=== PATIENT | female | born 1980 ===

== ENCOUNTER 2016-12-26 00:22 | Inpatient (IN) | payer BC ==
[2016-12-26] VITALS (14 sets, daily range): BP systolic 105–137; BP diastolic 63–94
[~2016-12-26] VITALS: Ht 162.6 cm; Wt 122.0 kg
[2016-12-26 00:48] LABS: BASO # 0.1 x10^3/uL (0.0-0.2); BASO % 1 % (0-3); EOS % 0 % (0-3); HEMATOCRIT 34.6 % (36.0-47.0); LYMPH # 2.9 x10^3/uL (1.0-4.8); LYMPH % 20 % (24-48); MEAN CORPUSCULAR HEMOGLOBIN 25 pg (25-35); MEAN CORPUSCULAR HGB CONC 32 g/dL (31-37); MEAN CORPUSCULAR VOLUME 80 fL (79-100); MONO % 4 % (0-9); NEUT % 75 % (31-73); PLATELET COUNT 223 x10^3/uL (140-400); RED BLOOD COUNT 4.35 x10^6/uL (3.50-5.40); RED CELL DISTRIBUTION WIDTH 18.5 % (11.5-14.5); WHITE BLOOD COUNT 14.5 x10^3/uL (4.0-11.0)
[2016-12-26 01:18] LABS: CALCIUM 8.9 mg/dL (8.5-10.1); GFR 62.4; POTASSIUM 3.7 mmol/L (3.5-5.1)
[2016-12-26] MEDS ORDERED: CONTRAST GIVEN MC PRN ×2 (01:30→12:15)
[2016-12-26 01:32] LABS: DIRECT BILIRUBIN 0.1 mg/dL (0.0-0.2); TOTAL BILIRUBIN 0.3 mg/dL (0.2-1.0); TOTAL PROTEIN 7.4 g/dL (6.4-8.2)
--- NOTE | 2016-12-26 01:34 | PHYS DOC ---
Past Medical History Past Medical History: Asthma, Hypertension Past Surgical History: , Other Additional Past Surgical Histo: HERNIA REPAIR Alcohol Use: None Drug Use: None Adult General Chief Complaint Chief Complaint: CHEST PAIN HPI HPI 36-year-old female who states she's having significant chest pain that is substernal and has been present for the last week and has acutely worsened throughout the last day. Patient's been seen by her primary doctor and started on a course of prednisone and Z-Ramon without any relief. Patient does have history of asthma. She also states she had a complication with her recent and was diagnosed with preeclampsia and had her 3 weeks early in early November. She is currently on nifedipine for blood pressure control. Pt had no history of HTN she states prior to her last . Pt denies any significant smoking history and drug use. Review of Systems Review of Systems Constitutional: Denies fever or chills [] Eyes: Denies change in visual acuity, redness, or eye pain [] HENT: Denies nasal congestion or sore throat [] Respiratory: Has cough, has shortness of breath [] Cardiovascular: No additional information not addressed in HPI [] GI: Denies abdominal pain, nausea, vomiting, bloody stools or diarrhea [] : Denies dysuria or hematuria [] Musculoskeletal: Denies back pain or joint pain [] Integument: Denies rash or skin lesions [] Neurologic: Denies headache, focal weakness or sensory changes [] Endocrine: Denies polyuria or polydipsia [] Current Medications Current Medications Current Medications Medications (Trade) Dose Ordered Sig/Ed Start Time Stop Time Status Last Admin Dose Admin Albuterol/ Ipratropium (Duoneb) 3 ml 1X ONCE 12/26/16 02:00 12/26/16 02:01 DC 12/26/16 01:56 3 ML Fentanyl Citrate (Fentanyl 2ml Vial) 50 mcg 1X ONCE 12/26/16 02:00 12/26/16 02:01 DC 12/26/16 02:17 50 MCG Info (Do NOT chart on this entry -- for MONITORING) 1 each PRN DAILY PRN 12/26/16 01:30 12/28/16 01:29 Iohexol (Omnipaque 300 Mg/ml) 75 ml 1X ONCE 12/26/16 02:00 12/26/16 02:01 DC Allergies Allergies Allergies Coded Allergies Type Severity Reaction Last Updated Verified No Known Drug Allergies 09/21/16 No Physical Exam Physical Exam Constitutional: Well developed, well nourished, moderate distress [] HENT: Normocephalic, atraumatic, bilateral external ears normal, oropharynx moist, no oral exudates, nose normal. [] Eyes: PERRLA, EOMI, conjunctiva normal, no discharge. [] Neck: Normal range of motion, no tenderness, supple, no stridor. [] Cardiovascular:Heart rate tachycardic with regular rhythm, no murmur [] Lungs & Thorax: Diminished bilaterally, tachypneic, moderate respiratory distress. [] Abdomen: Bowel sounds normal, soft, no tenderness, no masses, no pulsatile masses. [] Skin: Warm, dry, no erythema, no rash. [] Back: No tenderness, no CVA tenderness. [] Extremities: No tenderness, no cyanosis, no clubbing, ROM intact, no edema. [] Neurologic: Alert and oriented X 3, normal motor function, normal sensory function, no focal deficits noted. [] Psychologic: Affect normal, judgement normal, mood normal. [] Current Patient Data Vital Signs Vital Signs Date Time Temp Pulse Resp B/P (MAP) Pulse Ox O2 Delivery O2 Flow Rate FiO2 12/26/16 01:58 93 Nasal Cannula 4.0 12/26/16 00:29 99.0 108 24 161/94 (116) 99.0 Lab Values Laboratory Tests Test 12/26/16 00:40 12/26/16 01:16 White Blood Count 14.5 x10^3/uL (4.0-11.0) H Red Blood Count 4.35 x10^6/uL (3.50-5.40) Hemoglobin 11.0 g/dL (12.0-15.5) L Hematocrit 34.6 % (36.0-47.0) L Mean Corpuscular Volume 80 fL (79-100) Mean Corpuscular Hemoglobin 25 pg (25-35) Mean Corpuscular Hemoglobin Concent 32 g/dL (31-37) Red Cell Distribution Width 18.5 % (11.5-14.5) H Platelet Count 223 x10^3/uL (140-400) Neutrophils (%) (Auto) 75 % (31-73) H Lymphocytes (%) (Auto) 20 % (24-48) L Monocytes (%) (Auto) 4 % (0-9) Eosinophils (%) (Auto) 0 % (0-3) Basophils (%) (Auto) 1 % (0-3) Neutrophils # (Auto) 10.9 x10^3uL (1.8-7.7) H Lymphocytes # (Auto) 2.9 x10^3/uL (1.0-4.8) Monocytes # (Auto) 0.6 x10^3/uL (0.0-1.1) Eosinophils # (Auto) 0.0 x10^3/uL (0.0-0.7) Basophils # (Auto) 0.1 x10^3/uL (0.0-0.2) Sodium Level 142 mmol/L (136-145) Potassium Level 3.7 mmol/L (3.5-5.1) Chloride Level 107 mmol/L (98-107) Carbon Dioxide Level 26 mmol/L (21-32) Anion Gap 9 (6-14) Blood Urea Nitrogen 14 mg/dL (7-20) Creatinine 1.0 mg/dL (0.6-1.0) Estimated GFR (Cockcroft-Gault) 62.4 Glucose Level 117 mg/dL (70-99) H Calcium Level 8.9 mg/dL (8.5-10.1) Total Bilirubin 0.3 mg/dL (0.2-1.0) Direct Bilirubin 0.1 mg/dL (0.0-0.2) Aspartate Amino Transferase (AST) 19 U/L (15-37) Alanine Aminotransferase (ALT) 29 U/L (14-59) Alkaline Phosphatase 78 U/L (46-116) Troponin I Quantitative < 0.017 ng/mL (0.000-0.055) VU-Bpu-M-Type Natriuretic Peptide 2542 pg/mL (0-124) H Total Protein 7.4 g/dL (6.4-8.2) Albumin 3.0 g/dL (3.4-5.0) L POC Urine HCG, Qualitative Hcg negative (Negative) Laboratory Tests 12/26/16 00:40 Laboratory Tests 12/26/16 00:40 EKG EKG EKG as interpreted by me reveals a sinus tachycardia with a rate of 108 bpm. There is a non-specific intraventricular block. There are some noted t-wave inversions to lead 2, lead 3, AVF, V5, V6. This EKG does not meet STEMI criteria. Radiology/Procedures Radiology/Procedures Portable one view of the chest as interpreted by me shows a cardiomegaly with no other acute abnormality seen. Course & Med Decision Making Course & Med Decision Making Pertinent Labs and Imaging studies reviewed. (See chart for details) This 36-year-old female is having similar chest pain or shortness of breath. She is mildly hypertensive upon arrival and in mild distress. Her chest film shows significant cardiomegaly. Her EKG shows a sinus tachycardia with some noted T-wave inversions throughout. Her recent puts her at moderate risk for pulmonary embolus and she'll receive a CT of her chest to rule this out. Her laboratory workup indicates a slightly elevated white count. Her troponin is negative. Her BNP is elevated at 2459. Patient was taken to get a CT of her chest but when attempting to lie flat she became acutely anxious and unable to undergo this study. She was returned to the room and will have a breathing treatment administered. A dose of Ativan will be given and another attempt to obtain a CT scan will be made. After several DuoNeb treatments and a dose of Ativan, the patient is still significantly tachycardic and orthopneic and unwilling to lie flat for CT. A prophylactic dose of Lovenox will be given. Lasix will be given as well. At this time, it appears that the patient is having an advanced cardiomyopathy. Patient will be placed on BiPAP and a blood gas will be obtained after 30 minutes of treatment. Patient will be admitted on BiPAP therapy in an attempt to obtain a CT of her chest will be made later today. I will communicate this with the hospitalist in the morning. Consults to cardiology and OB will be made. She was admitted to the [facility] without incident. Her blood gas upon admission showed a pH of 7.35 with a pCO2 of 38.5 and a p02 of 56.3 with a bicarb of 21. Dragon Disclaimer Dragon Disclaimer This electronic medical record was generated, in whole or in part, using a voice recognition dictation system. Departure Departure Impression: Primary Impression: cardiomyopathy Additional Impressions: CHF exacerbation Dyspnea Disposition: ADMITTED INPATIENT Admitting Physician: Green, Mary Condition: STABLE Referrals: UNKNOWN PCP NAME (PCP) Problem Qualifiers KASSIE SHIRLEY DO December 26, 2016 01:34
[2016-12-26] MEDS ORDERED: fentaNYL PF VIAL 100 MCG/2 ML VIAL IV ONE ×2 (02:00→12:00)
[2016-12-26] MEDS ORDERED: IPRATRPIUM/ALBUTEROL 0.5/2.5MG 3 ML NEBU. NEB ONE ×2 (02:00→03:00)
[2016-12-26] MEDS ORDERED: IOHEXOL 300 MG/ML 75 ML VIAL IV ONE (02:00)
[2016-12-26] MEDS ORDERED: fentaNYL PF VIAL 100 MCG/2 ML VIAL IV PRN (02:15)
[2016-12-26] MEDS ORDERED: ONDANSETRON PF 4 MG/2 ML VIAL. IV PRN (02:15)
[2016-12-26] MEDS ORDERED: ACETAMINOPHEN 325 MG TABLET. PO PRN (02:15)
--- NOTE | 2016-12-26 02:27 | ACF ---
Admission Forms Criteria OBSTETRIC AND GYNECOLOGIC DISEASE [facility] Clinical Indications for Admission to Inpatient Care (Place 'X' for any and all applicable criteria): Hospital admission is needed for appropriate care of the patient because of 1 or more of the following (1)(2)(3): [ ]I. Hemodynamic instability, as indicated by 1 or more of the following (1)( 2)(3)(4)(5): [ ]a) Vital signs or other findings not as expected for chronic patient condition or baseline [ ]b) Instability indicated by 1 or more of the following: [ ]i) Hypotension [ ]ii) Symptomatic tachycardia unresponsive to treatment (eg, analgesia, fluids, sedation as indicated) [ ]iii) Inadequate perfusion indicated by 1 or more of the following: [ ]A. Lactic acidosis (greater than 2 mmol/ L) [ ]B. New abnormal capillary refill ( greater than 3 seconds) [ ]C. Reduced urine output [ ]D. New altered mental status [ ]iv) Orthostatic vital sign changes unresponsive to treatment (eg, fluids) [ ]v) Multiple IV fluid boluses required to maintain adequate blood pressure or perfusion [ ]vi) IV inotropic or vasopressor medication required to maintain adequate blood pressure or perfusion [ ]II. Obstetric infection requiring hospitalization indicated by 1 or more of the following(13)(14): [ ]a) Chorioamnionitis [ ]b) Endometritis (except mild endometritis) [ ]c) Pelvic abscess [ ]d) Peritonitis [ ]e) Septic pelvic thrombophlebitis [ ]III. Amniotic fluid or pulmonary embolism(4)(5)(6) [ ]IV. Suspected peritonitis or ectopic requiring monitoring beyond scope of 24 hours or observation care(7)(8) [ ]V. compromise requiring hospitalization indicated by ALL of the following(9)(10): [ ]a) compromise indicated by 1 or more of the following(11): [ ]i) Abnormal heart rate monitoring [ ]ii) Abnormal contraction stress test [ ]iii) Abnormal biophysical profile [ ]iv) Abnormal Doppler flow in vessels (ie, Doppler velocimetry) (12) [ ]b) Persistence of compromise indicators during evaluation and observation monitoring [ ]. Ovarian hyperstimulation syndrome requiring hospitalization[A] indicated by ALL of the following(15): [ ]a) Recent ovarian stimulation with gonadotropins, or evidence on ultrasound of spontaneous emergence of large number of ovarian follicles [ ]b) Evidence of severe ovarian hyperstimulation syndrome indicated by 1 or more of the following: [ ]i) Abdominal pain unresponsive to oral therapy [ ]ii) Acute respiratory distress syndrome [ ]iii) Electrolyte imbalance ( eg, hyponatremia, hyperkalemia) [ ]iv) Elevated liver enzymes [ ]v) Evidence of thromboembolism [ ]vi) Hemoconcentration (hematocrit greater than 45 % (0.45)) [ ]vii) Inability to maintain oral intake adequate to prevent hemoconcentration [ ]viii) Marked hypotension from baseline (eg, SBP 20 mmHg below patients usual pressure) [ ]ix) Oliguria or anuria [ ]x) Ovarian torsion [ ]xi) Pleural or pericardial effusion on x-ray or echocardiogram [ ]xii) Rapid increase in serum creatinine to greater than 1.2 mg/dL (106 micromoles/L) or creatinine clearance less than 50 mL/min/1.73m2 (0.84 mL/ sec/1.73m2) [ ]xiii) Ruptured ovarian cyst with hemorrhage [ ]xiv) Severe abdominal pain or peritoneal signs [ ]xv) Tense ascites that cannot be managed with paracentesis in outpatient setting [ ]VII.Pelvic infection requiring hospitalization indicated by 1 or more of the following (16): [ ]a) Outpatient treatment has failed or is not appropriate (eg, inpatient monitoring required) [ ]b) Pelvic abscess [ ]c) Surgical emergency cannot be excluded (eg, rigid abdomen) [ ]d) Vomiting precluding outpatient and observation care management VIII. loss complications requiring inpatient medical treatment indicated by 1 or more of the following (4)(7)(9): [ ]a) Fever [ ]b) Peritonitis [ ]c) Sepsis [ ]d) Severe abdominal pain [X]IX. or patient requiring monitoring for severe heart failure, pulmonary disease, or other comorbid condition (eg, peripartum cardiomyopathy) (4)(17) [ ]X. patient with rupture of membranes requiring hospitalization indicated by ANY ONE of the following: [ ]a) Chorioamnionitis, cloudy amniotic fluid, or other evidence of infection [ ]b) compromise or other need for monitoring (11) [ ]c) Gestation longer than 23 weeks and ANY ONE of the following: [ ]i) Abnormal (noncephalic) presentation [ ]ii) Inadequate home environment (eg, home too far from hospital, unable to rapidly return to hospital) [ ]d) Temperature greater than 100.4 degrees F (38 degrees C)( oral) [ ]e) Threatened labor requiring monitoring beyond scope (eg, over 24 hours) of observation Care [ ] XI. complications, including severe lacerations, infections, or retained placenta (19) [ ] XII.Uterine bleeding with high-risk features indicated by ANY ONE of the following (4): [ ]a) Active major hemorrhage (eg, hemorrhage) [ ]b) Coagulopathy with active bleeding [ ]c) Gestational trophoblastic disease (eg, molar ) (20 ) [ ]d) (longer than 23 weeks) and ANY ONE of the following: [ ]i) Pain [ ]ii) Placental abruption, known or suspected [ ]iii) Placenta accrete, known or suspected(21) [ ]iv) Placenta previa, known or suspected [ ]v) Vasa previa [ ]e) Severe anemia [ ]XIII. Obstetric or Gynecologic Disease, condition or symptom for which ANY ONE of the following: [ ]a) Emergency and observation care have failed or are not considered appropriate ( Also use General Criteria: Observation Care Criteria as appropriate) [ ]b) Presence of a General Admission Criteria or Pediatric General Admission Criteria The original [email or web address] content created by [facility] has been revised. The portions of the content which have been revised are identified through the use of italic text or in bold, and [facility] has neither reviewed nor approved the modified material.All other unmodified content is copyright [facility]. Please see references footnoted in the original [facility] edition 2016 Admission Criteria Met?: Yes JADON HUITRON December 26, 2016 02:27
[2016-12-26] MEDS ORDERED: FUROSEMIDE 40 MG/4 ML VIAL. IVP ONE (02:30)
[2016-12-26] MEDS ORDERED: ANTI-COAG MONITOR BY PHARMACY. MC PRN (03:00)
[2016-12-26] MEDS ORDERED: BENZONATATE 100 MG CAPSULE. PO ONE ×2 (03:30→04:00)
[2016-12-26] MEDS ORDERED: LORA10TA33 PO (04:24)
[2016-12-26] MEDS ORDERED: AZIT250T6 PO (04:24)
[2016-12-26] MEDS ORDERED: PRED50TA PO (04:24)
[2016-12-26] MEDS ORDERED: NIFE30TA17 PO (04:24)
[2016-12-26] MEDS ORDERED: PROAIR HFA8.5 GM INH (04:24)
[2016-12-26 05:44] LABS: HCO3 ABG 21 mmol/L (21-28); PCO2 ABG 39 mmHg (35-46); PH ABG 7.35 (7.35-7.45); PO2 ABG 56 mmHg (85-108); SAT O2 ABG 86 % (92-99)
--- NOTE | 2016-12-26 06:07 | EKG ---
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
[2016-12-26] MEDS: IPRATRPIUM/ALBUTEROL 0.5/2.5MG 3 ML NEBU. NEB SCH ×4 (06:48→20:18)
--- NOTE | 2016-12-26 07:12 | RAD ---
Exam performed: One view chest. Indication: chest pain tonight Date of Service: 12/26/2016 2:26 AM Comparison: 05/06/11. Single AP upright portable view chest findings: Moderate cardiomegaly. Pulmonary vascularity is unremarkable. No acute infiltrates, effusion or pneumothorax is detected. The bony structures are normal. Impression: No acute cardiopulmonary process is detected.
--- NOTE | 2016-12-26 09:20 | PDOC2 ---
BILL DILLON CHRISTIAN COUNSELOR 12/26/16 0920: CARDIAC CONSULT DATE OF CONSULT Date of Consult DATE: 12/26/16 TIME: 09:02 REASON FOR CONSULT Reason for Consult: CHF exacerbation, post cardiomyopathy REFERRING PHYSICIAN Referring Physician: Hafsa SOURCE Source: Chart review, Patient HISTORY OF PRESENT ILLNESS HISTORY OF PRESENT ILLNESS This is a pleasant 36 yo female admitted for complains of chest pain and SOA. Reports that she had preeclampsia with her BP running mainly in the 160/90s and her baby had to be delivered 3 weeks early via C section on 11/17/2016. Her baby is 5 lbs. She only gain about 15 lbs throughout her . She was taking procardia during her . Reports that 2 weeks ago she started having mid chest tightness as well as SOA. Notable heaviness to right arm. It started of with exertion then eventually a week ago progressed at rest. She has been having intermittent chest pain and last night she had diaphoresis and nausea. 2 days ago she was though to have asthma exacerbation in which she was given by her PCP, Z pack and steroids but these did not help even with the use of her albuterol. Notable for orthopnea and PND. Denies any hx of any recent falls, injury, no VTE. Denies any symptoms of HELLP syndrome during her . No prior CAD or diagnosed SERGIO PAST MEDICAL HISTORY Cardiovascular: HTN (preeclampsia) Pulmonary: Asthma CENTRAL NERVOUS SYSTEM: Other (No pertinent history) GI: No pertinent hx Heme/Onc: No pertinent hx Hepatobiliary: No pertinent hx Psych: No pertinent hx Musculoskeletal: Other (None) Rheumatologic: No pertinent hx Infectious disease: No pertinent hx ENT: Allergic Rhinitis Renal/: No pertinent hx Endocrine: No pertinent hx Dermatology: No pertinent hx Grav: 5 Para: 4 PAST SURGICAL HISTORY Past Surgical History: , Hernia Repair, Tubal Ligation, Other (1 miscarriage) FAMILY HISTORY Family History: Coronary Artery Disease (Mother 50s) SOCIAL HISTORY Smoke: No ALCOHOL: occassional Drugs: None Lives: with Family CURRENT MEDICATIONS CURRENT MEDICATIONS Current Medications Medications (Trade) Dose Ordered Sig/Ed Route PRN Reason Start Time Stop Time Status Last Admin Dose Admin Albuterol/ Ipratropium (Duoneb) 3 ml 1X ONCE NEB 12/26/16 02:00 12/26/16 02:01 DC 12/26/16 01:56 Fentanyl Citrate (Fentanyl 2ml Vial) 50 mcg 1X ONCE IV 12/26/16 02:00 12/26/16 02:01 DC 12/26/16 02:17 Lorazepam (Ativan) 1 mg 1X ONCE IV 12/26/16 02:15 12/26/16 02:16 DC 12/26/16 02:13 Ondansetron HCl (Zofran) 4 mg PRN Q8HRS PRN IV NAUSEA/VOMITING 12/26/16 02:15 12/27/16 02:14 12/26/16 04:07 Albuterol/ Ipratropium (Duoneb) 3 ml RTQID NEB 12/26/16 08:00 12/27/16 07:59 12/26/16 06:48 Furosemide (Lasix) 40 mg 1X ONCE IVP 12/26/16 02:30 12/26/16 02:31 DC 12/26/16 02:51 Albuterol/ Ipratropium (Duoneb) 3 ml 1X ONCE NEB 12/26/16 03:00 12/26/16 03:01 DC 12/26/16 02:28 Enoxaparin Sodium (Lovenox 120mg Syringe) 120 mg Q12HR SQ 12/26/16 03:30 12/26/16 04:07 Info (Anti-Coagulation Monitoring By Pharmacy) 1 each PRN DAILY PRN MC SEE COMMENTS 12/26/16 03:00 12/26/16 03:39 Benzonatate (Tessalon Perle) 100 mg 1X ONCE PO 12/26/16 03:30 12/26/16 03:31 DC 12/26/16 03:30 Benzonatate (Tessalon Perle) 100 mg 1X ONCE PO 12/26/16 04:00 12/26/16 04:01 DC 12/26/16 04:07 ALLERGIES ALLERGIES: Coded Allergies: No Known Drug Allergies (Unverified , 09/21/16) ROS Review of System 14 point ROS evaluated with pertinent positives noted per HPI PHYSICAL EXAM General: Alert, Oriented X3, Cooperative, No acute distress HEENT: Atraumatic, Mucous membr. moist/pink Lungs: Clear to auscultation, Normal air movement Heart: Regular rate (SR LBBB), Normal S1, Normal S2, Other (S3) Abdomen: Soft, No tenderness Extremities: No cyanosis, Other (1+ pitting edema) Skin: No breakdown, No significant lesion Neuro: Normal speech, Sensation intact Psych/Mental Status: Mental status NL, Mood NL MUSCULOSKELETAL: Full range of motion without pain VITALS VITALS Vital Signs Date Time Temp Pulse Resp B/P (MAP) Pulse Ox O2 Delivery O2 Flow Rate FiO2 12/26/16 08:25 BiPAP/CPAP 12/26/16 07:00 98.1 98 20 121/76 (91) 96 98.1 12/26/16 02:44 LABS Lab: Laboratory Tests Test 12/26/16 00:40 12/26/16 01:16 12/26/16 02:36 12/26/16 06:41 White Blood Count 14.5 x10^3/uL (4.0-11.0) Red Blood Count 4.35 x10^6/uL (3.50-5.40) Hemoglobin 11.0 g/dL (12.0-15.5) Hematocrit 34.6 % (36.0-47.0) Mean Corpuscular Volume 80 fL (79-100) Mean Corpuscular Hemoglobin 25 pg (25-35) Mean Corpuscular Hemoglobin Concent 32 g/dL (31-37) Red Cell Distribution Width 18.5 % (11.5-14.5) Platelet Count 223 x10^3/uL (140-400) Neutrophils (%) (Auto) 75 % (31-73) Lymphocytes (%) (Auto) 20 % (24-48) Monocytes (%) (Auto) 4 % (0-9) Eosinophils (%) (Auto) 0 % (0-3) Basophils (%) (Auto) 1 % (0-3) Neutrophils # (Auto) 10.9 x10^3uL (1.8-7.7) Lymphocytes # (Auto) 2.9 x10^3/uL (1.0-4.8) Monocytes # (Auto) 0.6 x10^3/uL (0.0-1.1) Eosinophils # (Auto) 0.0 x10^3/uL (0.0-0.7) Basophils # (Auto) 0.1 x10^3/uL (0.0-0.2) Sodium Level 142 mmol/L (136-145) Potassium Level 3.7 mmol/L (3.5-5.1) Chloride Level 107 mmol/L (98-107) Carbon Dioxide Level 26 mmol/L (21-32) Anion Gap 9 (6-14) Blood Urea Nitrogen 14 mg/dL (7-20) Creatinine 1.0 mg/dL (0.6-1.0) Estimated GFR (Cockcroft-Gault) 62.4 Glucose Level 117 mg/dL (70-99) Calcium Level 8.9 mg/dL (8.5-10.1) Total Bilirubin 0.3 mg/dL (0.2-1.0) Direct Bilirubin 0.1 mg/dL (0.0-0.2) Aspartate Amino Transf (AST/SGOT) 19 U/L (15-37) Alanine Aminotransferase (ALT/SGPT) 29 U/L (14-59) Alkaline Phosphatase 78 U/L (46-116) Troponin I Quantitative < 0.017 ng/mL (0.000-0.055) 0.056 ng/mL (0.000-0.055) HC-Blx-U-Type Natriuretic Peptide 2542 pg/mL (0-124) Total Protein 7.4 g/dL (6.4-8.2) Albumin 3.0 g/dL (3.4-5.0) Bedside Urine HCG, Qualitative Hcg negative (Negative) O2 Saturation 86 % (92-99) Arterial Blood pH 7.35 (7.35-7.45) Arterial Blood pCO2 at Patient Temp 39 mmHg (35-46) Arterial Blood pO2 at Patient Temp 56 mmHg (85-108) Arterial Blood HCO3 21 mmol/L (21-28) Arterial Blood Base Excess -4 mmol/L (-3-3) FiO2 30.0 ASSESSMENT/PLAN ASSESSMENT/PLAN 1. Acute systolic CHF: New. NYHA 2 2. Cardiomyopathy: preliminary EF at 15-20% with global hypokinesis. Trop at 0.056 with EKG at SR LBBB. New. 3. NSTEMI: intermittent CP since 2 weeks ago. Received bipap overnight. Now off. Able to lay flat O2 sat 99% on RA 4. : early delivery via C section 11/17/2016. Recent tubal ligation. 5. Asthma exacerbation: likely induced by CHF. 6. Hx of preeclampsia: with recent treated with adalat 7. Morbid obesity: BMI 46 8. Family hx of CAD: Mother just had an MS in her 50s 9. Suspect metabolic syndrome: positive for acanthoses nigricans. Negative for gestational DM. 10. HTN: remains uncontrolled at home FYI CTA not done due to inability to lay flat last night. Recommendations 1. LHC today. Risks and benefits explained and agreeable to proceed 2. Received Lasix in ED. 3. Will continue lasix, start onSRB, BB low dose post cath. Will DC adalat. Pt does not breast feed. 4. BMP, Mg, TSH, A1C, lipid, DDIMER 5. ASA. 6. Will likely need lifevest. Further recommendation pending cath result Problems: ROXANA PERAZA MD 12/26/16 1138: CARDIAC CONSULT ALLERGIES ALLERGIES: Coded Allergies: No Known Drug Allergies (Unverified , 09/21/16) ASSESSMENT/PLAN ASSESSMENT/PLAN Patient seen and examined. Agree with DECORATIVE ENGRAVER APPRENTICE's assessment and plan. Cardiomyopathy with LVEF 15-20% most probably peripartum cardiomyopathy but ischemic etiology needs to be ruled out due to presentation and strong family history. Plan for cardiac catheterization and possible angioplasty today. Risks and benefits were explained. Start beta blockers. Thank you for your consultation. Problems: BILL DILLON APRN December 26, 2016 09:20 ROXANA PERAZA MD December 26, 2016 11:38
--- NOTE | 2016-12-26 09:58 | CARD ---
APPROVED REPORT EXAM: Two-dimensional and M-mode echocardiogram with Doppler and color Doppler. Other Information Quality : Good INDICATION Postpardum Cardiomyopathy 2D DIMENSIONS RVDd2.7 (2.9-3.5cm)Left Atrium(2D)4.7 (1.6-4.0cm) IVSd1.1 (0.7-1.1cm)Aortic Root(2D)2.5 (2.0-3.7cm) LVDd6.1 (3.9-5.9cm)LVOT Diameter2.1 (1.8-2.4cm) PWd1.1 (0.7-1.1cm)LVDs4.8 (2.5-4.0cm) FS (%) 20.4 %SV75.8 ml LVEF(%)10.0 (>50%) Aortic Valve AoV Peak Thai.123.0cm/sAoV VTI18.8cm AO Peak GR.6.1mmHgLVOT VTI 15.96cm AO Mean GR.4mmHgAVA (VTI)2.90cm2 Mitral Valve MV E Mkgfldpp946.8cm/sMV DECEL ZLEQ44gs MV A Wqfcnmaa31.5cm/sE/A Ratio2.0 TDI Lateral E' P. V6.69cm/sMedial E' P. V6.24cm/s E/Lateral E'18.4E/Medial E'19.7 Tricuspid Valve TR P. Acoagxnq434ck/sRAP BSDJQXGC3wbAj TR Peak Gr.94fkEbUFEY56tlRw Pulmonary Vein S1 Pstmfnlt59.2cm/sS2 Xrwuskwp87.57cm/s D2 Bdxiwbqy04.6cm/s LEFT VENTRICLE The Left Ventricle is mildly dilated. There is normal left ventricular wall thickness. Left ventricle systolic function is severely impaired. The Ejection Fraction is 10-15%. There is severe global hypo kinesis of the left ventricle. Tissue Doppler imaging reveals moderate left ventricular diastolic dys function. RIGHT VENTRICLE The right ventricle is normal size. The right ventricular systolic function is normal. ATRIA The left atrium is mildly dilated. The right atrium size is normal. The interatrial septum is intact with no evidence for an atrial septal defect or patent foramen ovale as noted on 2-D or Doppler imagi ng. AORTIC VALVE The aortic valve is normal in structure and function. Doppler and Color Flow revealed no significant aortic regurgitation. There is no significant aortic valvular stenosis. MITRAL VALVE The mitral valve is normal in structure and function. There is no evidence of mitral valve prolapse. There is no mitral valve stenosis. Doppler and Color-flow revealed trace mitral regurgitation. TRICUSPID VALVE The tricuspid valve is normal in structure and function. Doppler and Color Flow revealed trace tricus pid regurgitation. The PA pressure was estimated at 30 mmHg. There is no tricuspid valve stenosis. PULMONIC VALVE The pulmonary valve is normal in structure and function. Doppler and Color Flow revealed trace pulmon ic valvular regurgitation. There is no pulmonic valvular stenosis. GREAT VESSELS The aortic root is normal in size. The ascending aorta is normal in size. The IVC is normal in size a nd collapses >50% with inspiration. PERICARDIAL EFFUSION There is a trace circumferential pericardial effusion. Critical Notification Physician Notified Date: 12/26/2016 Time: 09:25 Physician Name:Naomie Bolden APRN Critical Value: Yes <Conclusion> Left ventricle systolic function is severely impaired. The Ejection Fraction is 10-15%. There is severe global hypokinesis of the left ventricle.
[2016-12-26 10:10] LABS: CALCIUM 8.6 mg/dL (8.5-10.1); CREATININE 1.1 mg/dL (0.6-1.0); GFR 55.9; POTASSIUM 3.3 mmol/L (3.5-5.1)
[2016-12-26] MEDS ORDERED: ASPIRIN 325 MG TABLET ONE (10:14)
[2016-12-26] MEDS ORDERED: ASPIRIN ENTERIC COATED 325 MG TABLET.DR. PO ONE (10:15)
[2016-12-26 10:29] LABS: MAGNESIUM 1.7 mg/dL (1.8-2.4)
[2016-12-26 10:30] LABS: CHOLESTEROL/HDL RATIO 4.3
--- NOTE | 2016-12-26 10:34 | EKG ---
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
--- NOTE | 2016-12-26 10:39 | PDOC ---
Provider Note Provider Note [id number] dyspnea, multi factorial, acute sys chf, mild ae of asthma see orders CAROLIN DUKES MD December 26, 2016 10:39
[2016-12-26] MEDS: BUDESONIDE 0.5 MG/2 ML NEBU. NEB SCH ×2 (10:47→20:18)
[2016-12-26] MEDS ORDERED: MAGNESIUM SULFATE 2GM 50 ML IV ONE (11:00)
[2016-12-26] MEDS ORDERED: POTASSIUM CHLORIDE 20 MEQ TABLET.ER. PO ONE (11:00)
--- NOTE | 2016-12-26 11:39 | PDOC ---
MODERATE SEDATION ASSESSMENT RISKS/ALTERNATIVES Risks/Alternatives Risks and alternatives of this type of sedation and procedure discussed with: RISK/ALTERNATIVES: Patient H & P ON CHART H & P H & P on chart and reviewed for co-morbid conditions and appropriate labs. H&P ON CHART: Yes STATUS PREG STATUS ASSESSED: N/A MEDS/ALLERGIES REVIEWED Meds/Allergies Reviewed Medications and Allergies including time and route of recently administered narcotics and sedatives. MEDS/ALLERGIES REVIEWED: Yes ASA RATING ASA RATING: II AIRWAY ASSESSMENT Airway Assessment Airway patency, oral function limitations, presence of caps, crowns, dentures, partials, and ability to extend neck assessed. AIRWAY ASSESSMENT: Yes MALLAMPATI SCORE MALLAMPATI SCORE: II PRE-SEDATION ASSESSMENT PRE-SEDATION ASSESSMENT: Yes ROXANA PERAZA MD December 26, 2016 11:39
[2016-12-26] MEDS ORDERED: LIDOCAINE 2% 20 ML VIAL. ONE (11:47)
[2016-12-26] MEDS ORDERED: IOHEXOL 300 MG/ML 100ML VIAL. ONE (11:47)
[2016-12-26] MEDS ORDERED: NITROGLYCERIN 200 MCG/2 ML SYRINGE FOR CATH/VASC LAB. ONE (11:51)
[2016-12-26] MEDS ORDERED: fentaNYL PF VIAL 100 MCG/2 ML VIAL ONE (11:51)
[2016-12-26] MEDS ORDERED: MIDAZOLAM HCL/PF 2 MG/2 ML VIAL. ONE (11:51)
[2016-12-26] MEDS ORDERED: VERAPAMIL 5 MG/2 ML VIAL. ONE (11:51)
[2016-12-26] MEDS ORDERED: HEPARIN for IV BOLUS 10,000 UNIT/10 ML VIAL. ONE (11:51)
[2016-12-26] MEDS ORDERED: NITROGLYCERIN 200 MCG/2 ML SYRINGE FOR CATH/VASC LAB. IART ONE (12:00)
[2016-12-26] MEDS ORDERED: HEPARIN for IV BOLUS 10,000 UNIT/10 ML VIAL. IART ONE (12:00)
[2016-12-26] MEDS ORDERED: VERAPAMIL 5 MG/2 ML VIAL. IART ONE (12:00)
[2016-12-26] MEDS ORDERED: LIDOCAINE 2% 20 ML VIAL. IJ ONE (12:00)
[2016-12-26] MEDS ORDERED: MIDAZOLAM HCL/PF 2 MG/2 ML VIAL. IV ONE (12:00)
[2016-12-26] MEDS ORDERED: IOHEXOL 300 MG/ML 100ML VIAL. IART ONE (12:00)
--- NOTE | 2016-12-26 12:01 | CONS ---
DATE OF CONSULTATION: 12/26/2016 I was asked to see this 36-year-old lady for shortness of breath, asthma. HISTORY OF PRESENT ILLNESS: The patient has minimal remote history of smoking. She had her baby on 11/17/2016 and since then, she has had significant shortness of breath. She has had occasional cough and wheezing. She has nasal congestion. She has had occasional chest pain. She had an echocardiogram done during this hospitalization, which did show ejection fraction of 10-15%; Cardiology has admitted. She was given Lasix with improvement of her shortness of breath. She was on BiPAP overnight. She does have snoring and excessive daytime sleepiness, has not had any sleep study. PAST MEDICAL HISTORY: Asthma, preeclampsia during . ALLERGIES: No known drug allergies. MEDICATIONS: She is on Lovenox 120 mg b.i.d., DuoNeb, Lasix was given. SOCIAL HISTORY: Minimal remote history of smoking. FAMILY HISTORY: There is no history of lung disease. REVIEW OF SYSTEMS: As mentioned as above, other systems are otherwise negative. PHYSICAL EXAMINATION: GENERAL: This is an obese lady. VITAL SIGNS: Her O2 saturation is 94%, respiratory rate 20, heart rate 98, blood pressure 121/76, temperature 98.1. HEENT: Normocephalic, atraumatic. Pupils equal, round, reactive to light. Throat is clear. There is shallow oropharynx. Nose is clear. NECK: Positive JVD. No lymphadenopathy. CARDIOVASCULAR: Regular rate and rhythm. PMI is nondisplaced. CHEST: Inspection is normal. LUNGS: There are bibasilar crackles, a few end expiratory wheezing. ABDOMEN: Soft and obese, bowel sounds are good. There is no mass. EXTREMITIES: Trace edema. LYMPHATICS: There is no lymphadenopathy. SKIN: Warm. NEUROLOGIC: Alert and oriented x 3. LABORATORY DATA: I reviewed the following lab data: Chest x-ray shows cardiomegaly, increased vascular marking. WBC 14.5, hemoglobin 11, platelet 223. Sodium 141, potassium 3.3, chloride 106, CO2 of 27, glucose 93, BUN 14, creatinine 1.1. BNP 2542. Troponin 0.05. Triglyceride 183, cholesterol 257. Total bilirubin 0.3, AST 19, ALT 29, alkaline phosphatase 78. IMPRESSION: 1. Dyspnea, multifactorial in etiology including acute systolic congestive heart failure, asthma with mild acute exacerbation versus others. 2. Abnormal chest x-ray. 3. Acute systolic congestive heart failure. 4. cardiomyopathy. 5. Obesity; snoring and excessive daytime sleepiness, probable obstructive sleep apnea-hypopnea syndrome. 6. Preeclampsia in recent . PLAN AND RECOMMENDATIONS: 1. Titrate FiO2 to keep O2 saturation 92%. 2. Bronchodilator. 3. Add inhaled corticosteroid. 4. Keep intake less than output. I do recommend Lasix. Monitor potassium and creatinine. 5. I agree with CT angiogram. 6. Continue Lovenox until a CT angiogram is done. If it is negative for pulmonary embolism, I do recommend to change Lovenox to 40 mg subcutaneous daily. 7. I have discussed obstructive sleep apnea-hypopnea syndrome. The importance of diagnosis and treatment, if untreated, increased cardiovascular and [employer]CRAFT [employer] morbidity and mortality. I do recommend a sleep study as an outpatient. 8. pfts as an outpatient. 9. Cardiology is consulted. 10. The findings and recommendations were discussed with the patient and RN. I have answered all of the patient's questions. Thank you very much for allowing me to participate in care of this very nice lady. CAROLIN DUKES M.D. DR: Rosalba JOB#: [id number] / [id number] MCKENNA
[2016-12-26 12:11] LABS: BARBITURATES NEG (NEG); BENZODIAZEPINES NEG (NEG); CANNABINOIDS NEG (NEG); COCAINE NEG (NEG); METHADONE NEG (NEG); OPIATES NEG (NEG); PHENCYCLIDINE NEG (NEG)
[2016-12-26] MEDS: IV 1/2 NORMAL SALINE 1,000 ML IV SCH (12:53)
--- NOTE | 2016-12-26 13:06 | CARD ---
APPROVED REPORT Procedure(s) performed: Left heart catheterization, selective coronary angiography and left ventricul ography via right transradial approach INDICATION The indication(s) include : Unstable angina, cardiomyopathy, acute systolic heart failure. PROCEDURE NARRATIVE After explaining the risks, benefits and alternative options, informed consent was obtained from pete ent. Patient was brought to the cardiac [facility] and right wrist was prepped and draped in the usual fashion after confirming a positive modified Kobi's test. Arterial access was obtained in the [facility] radial artery and a 6 Welsh sheath was inserted. 6 Welsh JL 3.5 and 6 Welsh JR4 catheters were used to perform selective angiography of the left and right coronary arteries after initial attempts to engage these vessels using 6 Welsh Nabil catheter were unsuccessful. 6 Welsh pigtail catheter was used to perform left ventriculography. Patient tolerated the procedure well. Hemostasis was ach ieved using TR band. There were no immediate complications. The following findings were noted. FINDINGS 1. Hemodynamics: Left ventricular end-diastolic pressure of 27 mmHg. No pullback gradient across th e aortic valve. 2. Left ventriculography: Severe global left ventricular systolic dysfunction with ejection fraction estimated at 15-20%. No significant mitral regurgitation seen. 3. Coronary angiography: a. The left main coronary artery arose from the left sinus of Valsalva, gave rise to the left anteri or descending and left circumflex arteries and did not show any significant stenosis. b. The left anterior descending artery did not show any significant stenosis. c. The left circumflex artery did not show any significant stenosis. d. The right coronary artery was a large and dominant vessel arising from the right sinus of Valsalv a that did not show any significant stenosis. Conclusion 1. No significant coronary artery disease 2. 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 Repeat 2-D echo in 3 months to evaluate the need for AICD implantation.
[2016-12-26] MEDS ORDERED: NON FORMULARY ITEM (Albuterol Sulfate (Proair Hfa Inhaler) 1 PUFF) INH PRN (13:30)
[2016-12-26] MEDS ORDERED: BENZONATATE 100 MG CAPSULE. PO PRN (13:30)
[2016-12-26] MEDS ORDERED: ALBUTEROL SULFATE 2.5 MG/3 ML NEBU. NEB PRN (13:45)
[2016-12-26] MEDS: LISINOPRIL 2.5 MG TABLET PO SCH (18:05)
--- NOTE | 2016-12-26 18:12 | HP ---
ADMIT DATE: 12/26/2016 CHIEF COMPLAINT: Chest pain, shortness of breath. HISTORY OF PRESENT ILLNESS: The patient is a 36-year-old -[place] woman who presented to the Emergency Room with significant substernal chest pain which had been present on and off for about a week and acutely worsened the day prior to presentation. She actually had seen her PCP and had been given a prescription for prednisone and Z-ANDERSON with history of asthma, but without any noticeable relief. Of note, the patient delivered her fourth child, via , 3 weeks ago. had been complicated by eclampsia and she had been started on nifedipine for blood pressure at the time. In the Emergency Room, she was found tachycardic, hypoxic; chest x-ray revealing massive cardiomegaly and fluffy infiltrates bilaterally. She was therefore tentatively diagnosed with cardiomyopathy and admitted to the [facility] for further management and care. She has been started on Lasix IV with good results. Although she had required BiPAP overnight, she is now breathing with nasal cannula 2 liters supplemental oxygen. PAST MEDICAL HISTORY: as above. She never had hypertension or cardiac issues prior. FAMILY HISTORY: Positive for heart disease with mother having CABG at age 50. SOCIAL HISTORY: Lives with her 4 children, age 3 months to 18 years and fiance. 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 No toxic habits, never smoked. ALLERGIES: No known drug allergies. HOME MEDICATIONS: Nifedipine. REVIEW OF SYSTEMS: The patient relates that breathing is currently much improved. She is very fatigued, does not get much rest overnight. Denies any ongoing chest pain, nausea, vomiting or other symptoms in rest of organ system review. PHYSICAL EXAMINATION: VITAL SIGNS: From today show a blood pressure of 131/88, heart rate of 99, respiratory rate at 18. She is afebrile. GENERAL: This is a massively obese 36-year-old -[place] woman, awake, alert, in no acute distress. HEENT: Shows no scleral icterus. NECK: Supple. LUNGS: Clear to auscultation bilaterally. HEART: Tachycardic. ABDOMEN: Massively obese. EXTREMITIES: Show no edema. SKIN: Warm, soft and dry without any rash. LABORATORY DATA: CBC from today shows a WBC of 14.5, hemoglobin 11, platelets of 223, MCV at 80. BUN and creatinine are 14 and 1.1. Sodium 141, potassium 3.3. Of note, at admission, BUN and creatinine 14 and 1 and normal electrolytes. Initial troponin was negative. LFTs within normal, slight increase in second troponin to 0.056. ProBNP 2542. LFTs obtained show cholesterol at 257, triglycerides 183 with LDL cholesterol at 160. ASSESSMENT AND PLAN: The patient is a 36-year-old -[place] woman with cardiomyopathy. Echo actually was done this morning and ejection fraction appears to be about 10%. Considering, she is actually astonishingly mild in her symptoms. Continue IV Lasix for diuresis for the time being. She actually already underwent a cardiac catheterization, this shows an EF of 15-20% without any significant coronary artery disease. There is severe global left ventricular systolic dysfunction. Recommendations for optimization of medical therapy for her nonischemic cardiomyopathy. She will be followed on an outpatient basis as well with a repeat echo in anticipated 3 months. For hypercholesterolemia, she will be started on atorvastatin. Prophylaxis will be achieved with Lovenox. HUONG WILLIAMSON MD DR: SRUTHI/nts JOB#: [id number] / [id number] MCKENNA
[2016-12-26] MEDS: METOPROLOL TART IMMED RELEASE 25 MG TABLET. PO SCH (20:58)
[2016-12-26] MEDS ORDERED: ATORVASTATIN CALCIUM 40 MG TABLET. PO SCH (21:00)
[2016-12-27 03:00] VITALS: BP 110/85
[2016-12-27 05:33] LABS: CALCIUM 8.4 mg/dL (8.5-10.1); GFR 62.4; POTASSIUM 4.1 mmol/L (3.5-5.1)
[2016-12-27] MEDS: IV 1/2 NORMAL SALINE 1,000 ML IV SCH (05:33)
[2016-12-27 07:00] VITALS: BP 119/67
[2016-12-27] MEDS: BUDESONIDE 0.5 MG/2 ML NEBU. NEB SCH (07:42)
[2016-12-27] MEDS: IPRATRPIUM/ALBUTEROL 0.5/2.5MG 3 ML NEBU. NEB SCH (07:42)
[2016-12-27] MEDS ORDERED: POTASSIUM CHLORIDE 10 MEQ TABLET.ER. PO SCH (08:00)
[2016-12-27] MEDS: METOPROLOL TART IMMED RELEASE 25 MG TABLET. PO SCH (08:53)
[2016-12-27] MEDS: LISINOPRIL 2.5 MG TABLET PO SCH (08:53)
[2016-12-27] MEDS ORDERED: FUROSEMIDE 40 MG TABLET. PO SCH (09:00)
--- NOTE | 2016-12-27 09:10 | PDOC ---
PULMONARY PROGRESS NOTES Subjective sob, is better. has some pleuritic cp, occ cough. Vitals Vital Signs Date Time Temp Pulse Resp B/P (MAP) Pulse Ox O2 Delivery O2 Flow Rate FiO2 12/27/16 08:53 84 119/67 12/27/16 08:16 Room Air 12/27/16 07:43 98 12/27/16 07:00 97.6 20 97.6 12/26/16 08:00 4.0 ROS: No Nausea, No Abdominal Pain HEENT: Other (nc at perrl. shallow oropharynx nose clear) Lungs: Clear Cardiovascular: S1, S2 Abdomen: Soft, Non-tender Neuro Exam: Alert Extremities: Other (edema) Skin: Warm Labs Laboratory Tests Test 12/26/16 00:40 12/26/16 01:16 12/26/16 02:36 12/26/16 06:41 White Blood Count 14.5 x10^3/uL (4.0-11.0) Red Blood Count 4.35 x10^6/uL (3.50-5.40) Hemoglobin 11.0 g/dL (12.0-15.5) Hematocrit 34.6 % (36.0-47.0) Mean Corpuscular Volume 80 fL (79-100) Mean Corpuscular Hemoglobin 25 pg (25-35) Mean Corpuscular Hemoglobin Concent 32 g/dL (31-37) Red Cell Distribution Width 18.5 % (11.5-14.5) Platelet Count 223 x10^3/uL (140-400) Neutrophils (%) (Auto) 75 % (31-73) Lymphocytes (%) (Auto) 20 % (24-48) Monocytes (%) (Auto) 4 % (0-9) Eosinophils (%) (Auto) 0 % (0-3) Basophils (%) (Auto) 1 % (0-3) Neutrophils # (Auto) 10.9 x10^3uL (1.8-7.7) Lymphocytes # (Auto) 2.9 x10^3/uL (1.0-4.8) Monocytes # (Auto) 0.6 x10^3/uL (0.0-1.1) Eosinophils # (Auto) 0.0 x10^3/uL (0.0-0.7) Basophils # (Auto) 0.1 x10^3/uL (0.0-0.2) Sodium Level 142 mmol/L (136-145) Potassium Level 3.7 mmol/L (3.5-5.1) Chloride Level 107 mmol/L (98-107) Carbon Dioxide Level 26 mmol/L (21-32) Anion Gap 9 (6-14) Blood Urea Nitrogen 14 mg/dL (7-20) Creatinine 1.0 mg/dL (0.6-1.0) Estimated GFR (Cockcroft-Gault) 62.4 Glucose Level 117 mg/dL (70-99) Calcium Level 8.9 mg/dL (8.5-10.1) Total Bilirubin 0.3 mg/dL (0.2-1.0) Direct Bilirubin 0.1 mg/dL (0.0-0.2) Aspartate Amino Transf (AST/SGOT) 19 U/L (15-37) Alanine Aminotransferase (ALT/SGPT) 29 U/L (14-59) Alkaline Phosphatase 78 U/L (46-116) Troponin I Quantitative < 0.017 ng/mL (0.000-0.055) 0.056 ng/mL (0.000-0.055) NC-Gcd-N-Type Natriuretic Peptide 2542 pg/mL (0-124) Total Protein 7.4 g/dL (6.4-8.2) Albumin 3.0 g/dL (3.4-5.0) Bedside Urine HCG, Qualitative Hcg negative (Negative) Urine Opiates Screen Neg (NEG) Urine Methadone Screen Neg (NEG) Urine Barbiturates Neg (NEG) Urine Phencyclidine Screen Neg (NEG) Urine Amphetamine/Methamphetamine Neg (NEG) Urine Benzodiazepines Screen Neg (NEG) Urine Cocaine Screen Neg (NEG) Urine Cannabinoids Screen Neg (NEG) Urine Ethyl Alcohol Neg (NEG) O2 Saturation 86 % (92-99) Arterial Blood pH 7.35 (7.35-7.45) Arterial Blood pCO2 at Patient Temp 39 mmHg (35-46) Arterial Blood pO2 at Patient Temp 56 mmHg (85-108) Arterial Blood HCO3 21 mmol/L (21-28) Arterial Blood Base Excess -4 mmol/L (-3-3) FiO2 30.0 Thyroid Stimulating Hormone (TSH) 0.923 uIU/mL (0.358-3.74) Test 12/26/16 09:35 12/27/16 04:40 D-Dimer (Christiane) 1.65 ug/mlFEU (0.00-0.50) Sodium Level 141 mmol/L (136-145) 140 mmol/L (136-145) Potassium Level 3.3 mmol/L (3.5-5.1) 4.1 mmol/L (3.5-5.1) Chloride Level 106 mmol/L (98-107) 107 mmol/L (98-107) Carbon Dioxide Level 27 mmol/L (21-32) 25 mmol/L (21-32) Anion Gap 8 (6-14) 8 (6-14) Blood Urea Nitrogen 14 mg/dL (7-20) 15 mg/dL (7-20) Creatinine 1.1 mg/dL (0.6-1.0) 1.0 mg/dL (0.6-1.0) Estimated GFR (Cockcroft-Gault) 55.9 62.4 Glucose Level 93 mg/dL (70-99) 91 mg/dL (70-99) Hemoglobin A1c 5.6 % (4.8-5.6) Calcium Level 8.6 mg/dL (8.5-10.1) 8.4 mg/dL (8.5-10.1) Magnesium Level 1.7 mg/dL (1.8-2.4) Triglycerides Level 183 mg/dL (0-150) Cholesterol Level 257 mg/dL (0-200) LDL Cholesterol, Calculated 160 mg/dL (0-100) VLDL Cholesterol, Calculated 37 mg/dL (0-40) Non-HDL Cholesterol Calculated 197 mg/dL (0-129) HDL Cholesterol 60 mg/dL (40-60) Cholesterol/HDL Ratio 4.3 Laboratory Tests Test 12/26/16 09:35 12/27/16 04:40 D-Dimer (Christiane) 1.65 ug/mlFEU (0.00-0.50) Sodium Level 141 mmol/L (136-145) 140 mmol/L (136-145) Potassium Level 3.3 mmol/L (3.5-5.1) 4.1 mmol/L (3.5-5.1) Chloride Level 106 mmol/L (98-107) 107 mmol/L (98-107) Carbon Dioxide Level 27 mmol/L (21-32) 25 mmol/L (21-32) Anion Gap 8 (6-14) 8 (6-14) Blood Urea Nitrogen 14 mg/dL (7-20) 15 mg/dL (7-20) Creatinine 1.1 mg/dL (0.6-1.0) 1.0 mg/dL (0.6-1.0) Estimated GFR (Cockcroft-Gault) 55.9 62.4 Glucose Level 93 mg/dL (70-99) 91 mg/dL (70-99) Hemoglobin A1c 5.6 % (4.8-5.6) Calcium Level 8.6 mg/dL (8.5-10.1) 8.4 mg/dL (8.5-10.1) Magnesium Level 1.7 mg/dL (1.8-2.4) Triglycerides Level 183 mg/dL (0-150) Cholesterol Level 257 mg/dL (0-200) LDL Cholesterol, Calculated 160 mg/dL (0-100) VLDL Cholesterol, Calculated 37 mg/dL (0-40) Non-HDL Cholesterol Calculated 197 mg/dL (0-129) HDL Cholesterol 60 mg/dL (40-60) Cholesterol/HDL Ratio 4.3 Medications Active Scripts Medications Dose Route/Sig Max Daily Dose Days Date Category Proair Hfa Inhaler (Albuterol Sulfate) 8.5 Gm Hfa.aer.ad 1 Puff INH PRN Q6HRS PRN 12/26/16 Reported Alavert (Loratadine) 10 Mg Tab.rapdis 10 Mg PO 12/26/16 Reported Azithromycin Tablet (Azithromycin) 250 Mg Tablet 250 Mg PO DAILY 12/26/16 Reported Prednisone 50 Mg Tablet 1 Tab PO DAILY 12/26/16 Reported Nifedipine Er (Nifedipine) 30 Mg Tab.er.24 1 Tab PO DAILY 12/26/16 Reported Comments Left ventricle systolic function is severely impaired. The Ejection Fraction is 10-15%. There is severe global hypokinesis of the left ventricle. Impression . IMPRESSION: 1. Dyspnea, multifactorial in etiology including acute systolic congestive heart failure, asthma with mild acute exacerbation versus others. 2. Abnormal chest x-ray. 3. Acute systolic congestive heart failure. 4. cardiomyopathy. 5. Obesity; snoring and excessive daytime sleepiness, probable obstructive sleep apnea-hypopnea syndrome. 6. Preeclampsia in recent . Plan . PLAN AND RECOMMENDATIONS: 1. Titrate FiO2 to keep O2 saturation 92%. 2. Bronchodilator. 3. inhaled corticosteroid. 4. Keep intake less than output. I do recommend Lasix. Monitor potassium and creatinine. 5. I agree with CT angiogram. 6. Continue Lovenox until a CT angiogram is done. If it is negative for pulmonary embolism, I do recommend to change Lovenox to 40 mg subcutaneous daily. 7. I have discussed obstructive sleep apnea-hypopnea syndrome. 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 I do recommend a sleep study as an outpatient. 8. pfts as an outpatient. 9. Cardiology is consulted, cardiac cath nl. 10. The findings and recommendations were discussed with the patient and RN. I have answered all of the patient's questions. CAROLIN DUKES MD December 27, 2016 09:10
--- NOTE | 2016-12-27 09:30 | PDOC ---
THERONDARA Jess FIELD SCOUT 12/27/16 0930: CARDIO Progress Notes Date and Time Date of Service 12/27/2016 Time of Evaluation 09 Subjective Subjective: No Chest Pain, No shortness of breath, No Palpitations, No Dizziness Vitals Vitals Vital Signs Date Time Temp Pulse Resp B/P (MAP) Pulse Ox O2 Delivery O2 Flow Rate FiO2 12/27/16 08:53 84 119/67 12/27/16 08:16 Room Air 12/27/16 07:43 98 12/27/16 07:00 97.6 20 97.6 12/26/16 08:00 4.0 Weight Weight [ ] Input and Output Intake and Output Intake and Output 12/27/16 07:00 Intake Total 1400 ml Output Total 3000 ml Balance -1600 ml Intake Oral 1400 ml Output Urine Total 3000 ml Urine/Stool Mix 0 ml Laboratory Labs Laboratory Tests Test 12/26/16 09:35 12/27/16 04:40 D-Dimer (Christiane) 1.65 ug/mlFEU (0.00-0.50) Sodium Level 141 mmol/L (136-145) 140 mmol/L (136-145) Potassium Level 3.3 mmol/L (3.5-5.1) 4.1 mmol/L (3.5-5.1) Chloride Level 106 mmol/L (98-107) 107 mmol/L (98-107) Carbon Dioxide Level 27 mmol/L (21-32) 25 mmol/L (21-32) Anion Gap 8 (6-14) 8 (6-14) Blood Urea Nitrogen 14 mg/dL (7-20) 15 mg/dL (7-20) Creatinine 1.1 mg/dL (0.6-1.0) 1.0 mg/dL (0.6-1.0) Estimated GFR (Cockcroft-Gault) 55.9 62.4 Glucose Level 93 mg/dL (70-99) 91 mg/dL (70-99) Hemoglobin A1c 5.6 % (4.8-5.6) Calcium Level 8.6 mg/dL (8.5-10.1) 8.4 mg/dL (8.5-10.1) Magnesium Level 1.7 mg/dL (1.8-2.4) Triglycerides Level 183 mg/dL (0-150) Cholesterol Level 257 mg/dL (0-200) LDL Cholesterol, Calculated 160 mg/dL (0-100) VLDL Cholesterol, Calculated 37 mg/dL (0-40) Non-HDL Cholesterol Calculated 197 mg/dL (0-129) HDL Cholesterol 60 mg/dL (40-60) Cholesterol/HDL Ratio 4.3 Physical Exam HEENT: Neck Supple W Full Motion Chest: Symmetric LUNGS: Other (decreased in bases bilaterally) Heart: S1S2, RRR Abdomen: Soft N/T, Other (truncal obesity) Extremities: No Edema Neurology: alert, oriented, follow commands Assessment Assessment 1. Acute systolic CHF NYHA class 2 continue medical management 2. Cardiomyopathy, non-ischemic LVEF depressed ~ 10 -15% cardiac cath with significant disease; 12/26/2016 discussed LifeVest with patient and given information - she will consider - concerned about ability to work 3. HTN pre-eclamptic with recent controlled with meds 4. Asthma exacerbation per pulm 5. Morbid obesity: BMI 46 YOVANY LIU MD 12/27/16 1019: CARDIO Progress Notes Plan Plan Pt. seen and examined. AGree with above [employer] Note. No acute events. Cardiac cath is angiographically NORMAL. No significant disease identified. EF is severely diminished. Elevated ddimer being evaluated by pulmonary No chest pain Will consider lifevest and repeat outpt eval to determine if she would qualify for ICD Supportive care Ok to dc later today. DARA CRUMP APRN December 27, 2016 09:30 YOVANY LIU MD December 27, 2016 10:19
[2016-12-27] MEDS ORDERED: CONTRAST GIVEN MC PRN (09:45)
[2016-12-27] MEDS ORDERED: IOHEXOL 300 MG/ML 75 ML VIAL IV ONE ×2 (10:00→11:00)
[2016-12-27 10:45] VITALS: BP 122/68
[2016-12-27] MEDS ORDERED: ATOR40TA59 PO (12:54)
[2016-12-27] MEDS ORDERED: FURO40TA4 PO (12:54)
[2016-12-27] MEDS ORDERED: POTA10TA12 PO (12:54)
[2016-12-27] MEDS ORDERED: LISI2.5T PO (12:54)
[2016-12-27] MEDS ORDERED: METO-269 PO (12:56)
[2016-12-27 15:00] VITALS: BP 113/63
--- NOTE | 2016-12-27 15:11 | CONS ---
DATE OF CONSULTATION: HISTORY OF PRESENT ILLNESS: This patient is a 36-year-old -[place] female who is 4, para 4, admitted to the hospital with a history of having chest pain, difficulty to breathe. She has had last delivery by section and also had tubal ligation about 5 weeks ago at [facility] and she is a patient of ____ and was sent home after the delivery and comes back with chest pain and difficulty to breathe at this time and she has no history of any vaginal bleeding at this time and she is not breast feeding. PHYSICAL EXAMINATION: VITAL SIGNS: Her vital signs have been stable and no history of any fever. ABDOMEN: On examination, abdomen feels soft and uterus ____, no excessive vaginal bleeding. The patient is quite obese and there is no history of any toxemia or high blood pressure during . DIAGNOSES: cardiomyopathy and congestive heart failure. RECOMMENDATION: Would continue with the present treatment that she is getting and she should follow with shoulder puncher recommendations and she was advised bed rest at this time until further recovery and we will be glad to follow the patient with you. Thank you for giving me the opportunity to participate in the care and management of this patient. DARA CLAUDIO MD DR: ABIMBOLA/[place] JOB#: [id number] / [id number]
--- NOTE | 2016-12-28 09:23 | RAD ---
Examination: CT angiogram chest History: History of shortness of breath Comparison: None available Technique: Axial CT angiographic images of chest were performed with IV contrast. Coronal and sagittal 3-D MIP reformats are performed Please note that the images were submitted for interpretation on 12/28/2016. The exam was performed on 12/26/2016. RS Compliance Statement: One or more of the following individualized dose reduction techniques were utilized for this examination: 1. Automated exposure control 2. Adjustment of the mA and/or kV according to patient size 3. Use of iterative reconstruction technique Findings: The central airways are patent. Mild cardiomegaly is identified. There is no evidence of filling defect identified in the main pulmonary artery trunk and right and left main pulmonary arteries. The evaluation of the distal segmental and subsegmental branches evaluation is limited on this examination due to breathing motion artifact. The caliber of the aorta grossly appears unremarkable. Faint groundglass airspace opacities identified in the bilateral lungs involving the upper lobes in the apical region and the right middle lobe could be mild infiltrates or edema. No evidence of pleural effusion or pneumothorax identified. The visualized liver, spleen, adrenals grossly appears unremarkable. There is reflux of contrast into the IVC and hepatic veins could be due to elevated right heart pressures. No evidence of lytic bony destructive lesion identified. Impression: 1. No evidence of central pulmonary embolism. The evaluation of the distal segmental and subsegmental branches is limited. 2. Faint patchy groundglass airspace opacities identified in the bilateral upper lobes and in the right middle lobe of the lung likely infiltrates or edema. Follow-up to resolution. 3. Mild cardiomegaly. There is reflux of contrast identified into the IVC and hepatic veins. Correlate for elevated right heart pressures.
== END 2016-12-27 18:03 | disposition home or self-care (01) | DRG 776 ==
LOC: ER 00:22 → 2 SOUTH 02:05
PROVIDERS: ADMIT Internal Medicine; ATTEND Internal Medicine
PROC: 4A023N7 Measurement of Cardiac Sampling and Pressure, Left Heart, Percutaneous Approach (ICD-10-PCS; principal; 2016-12-26)
PROC: B2111ZZ Fluoroscopy of Multiple Coronary Arteries using Low Osmolar Contrast (ICD-10-PCS; 2016-12-26)
PROC: B2151ZZ Fluoroscopy of Left Heart using Low Osmolar Contrast (ICD-10-PCS; 2016-12-26)
PROC: 5A09357 Assistance with Respiratory Ventilation, Less than 24 Consecutive Hours, Continuous Positive Airway Pressure (ICD-10-PCS; 2016-12-26)
DX: O99.43 Diseases of the circulatory system complicating the puerperium (principal); I50.21 Acute systolic (congestive) heart failure; I21.4 Non-ST elevation (NSTEMI) myocardial infarction; O15.2 Eclampsia complicating the puerperium; J45.901 Unspecified asthma with (acute) exacerbation; Z68.42 Body mass index [BMI] 45.0-49.9, adult; O99.285 Endocrine, nutritional and metabolic diseases complicating the puerperium; O99.53 Diseases of the respiratory system complicating the puerperium; O99.215 Obesity complicating the puerperium; E78.00 Pure hypercholesterolemia, unspecified; I11.0 Hypertensive heart disease with heart failure; R09.02 Hypoxemia; E66.01 Morbid (severe) obesity due to excess calories; I44.7 Left bundle-branch block, unspecified; G47.33 Obstructive sleep apnea (adult) (pediatric); Z87.891 Personal history of nicotine dependence; Z82.49 Family history of ischemic heart disease and other diseases of the circulatory system
CPT/HCPCS: 36415; 51702; 71010; 71275; 80048; 80061; 80076; 81025; 82805; 83036; 83735; 83880; 84443; 84484; 85027; 85379; 93005; 93306; 93458; 94640; 94660; 94760; 96374; 96375; C1769; C1892; G0481; J1650; J1940; J2060; J2250; J2405; J3010; J3490; J7060; J7620; Q9967; 99285-25

== ENCOUNTER 2017-01-05 02:42 | Inpatient (IN) | payer BC ==
[~2017-01-05] VITALS: Ht 162.6 cm; Wt 115.2 kg
[~2017-01-05 02:42] MED LIST: ATOR40TA59 PO; AZIT250T6 PO; FURO40TA4 PO; LISI2.5T PO; LORA10TA33 PO; METO-269 PO; NIFE30TA17 PO; POTA10TA12 PO; PRED50TA PO; PROAIR HFA8.5 GM INH
--- NOTE | 2017-01-05 02:46 | PHYS DOC ---
Past Medical History Past Medical History: Asthma, Hypertension Past Surgical History: , Other Additional Past Surgical Histo: HERNIA REPAIR Alcohol Use: None Drug Use: None Adult General Chief Complaint Chief Complaint: SHORTNESS OF BREATH HPI HPI 36-year-old female who had recent admission for cardiomyopathy with a severely reduced EF of 10% is now presenting again with orthopnea and shortness of air approximately one hour prior to arrival. She does also complain of some pleuritic type chest pain. Upon arrival, patient was saturating in the mid to upper 80s and placed on nasal cannula. Patient reports that she is 6-8 weeks . Her last was complicated by preeclampsia that required an early by 3 weeks. Patient currently is taking Lasix and blood pressure medication. She states she is compliant with these medications. She denies any recent cough or fever. Review of Systems Review of Systems Constitutional: Denies fever or chills [] Eyes: Denies change in visual acuity, redness, or eye pain [] HENT: Denies nasal congestion or sore throat [] Respiratory: Denies cough, has shortness of breath [] Cardiovascular: No additional information not addressed in HPI [] GI: Denies abdominal pain, nausea, vomiting, bloody stools or diarrhea [] : Denies dysuria or hematuria [] Musculoskeletal: Denies back pain or joint pain [] Integument: Denies rash or skin lesions [] Neurologic: Denies headache, focal weakness or sensory changes [] Endocrine: Denies polyuria or polydipsia [] Current Medications Current Medications Current Medications Medications (Trade) Dose Ordered Sig/Ed Start Time Stop Time Status Last Admin Dose Admin Albuterol/ Ipratropium (Duoneb) 3 ml 1X ONCE 01/05/17 03:00 01/05/17 03:01 DC 01/05/17 03:09 3 ML Furosemide (Lasix) 40 mg 1X ONCE 01/05/17 03:15 01/05/17 03:16 DC 01/05/17 03:29 40 MG Allergies Allergies Allergies Coded Allergies Type Severity Reaction Last Updated Verified No Known Drug Allergies 09/21/16 No Physical Exam Physical Exam Constitutional: Well developed, well nourished, no acute distress, non-toxic appearance. [] HENT: Normocephalic, atraumatic, bilateral external ears normal, oropharynx moist, no oral exudates, nose normal. [] Eyes: PERRLA, EOMI, conjunctiva normal, no discharge. [] Neck: Normal range of motion, no tenderness, supple, no stridor. [] Cardiovascular:Heart rate regular rhythm, no murmur [] Lungs & Thorax: Diminished bilaterally [] Abdomen: Bowel sounds normal, soft, no tenderness, no masses, no pulsatile masses. [] Skin: Warm, dry, no erythema, no rash. [] Back: No tenderness, no CVA tenderness. [] Extremities: No tenderness, no cyanosis, no clubbing, ROM intact, no edema. [] Neurologic: Alert and oriented X 3, normal motor function, normal sensory function, no focal deficits noted. [] Psychologic: Affect normal, judgement normal, mood normal. [] Current Patient Data Vital Signs Vital Signs Date Time Temp Pulse Resp B/P (MAP) Pulse Ox O2 Delivery O2 Flow Rate FiO2 01/05/17 03:02 97 Nasal Cannula 3.0 01/05/17 02:50 98.4 119 24 119/68 (85) 98.4 Lab Values Laboratory Tests Test 01/05/17 02:01 01/05/17 02:46 01/05/17 02:50 POC Urine HCG, Qualitative Hcg negative (Negative) Urine Collection Type Unknown Urine Color Yellow Urine Clarity Clear Urine pH 5.5 Urine Specific [place] 1.020 Urine Protein 30 mg/dL (NEG-TRACE) Urine Glucose (UA) Negative mg/dL (NEG) Urine Ketones (Stick) Negative mg/dL (NEG) Urine Blood Negative (NEG) Urine Nitrite Negative (NEG) Urine Bilirubin Negative (NEG) Urine Urobilinogen Dipstick 1.0 mg/dL (0.2 mg/dL) Urine Leukocyte Esterase Negative (NEG) Urine RBC Occ /HPF (0-2) Urine WBC Occ /HPF (0-4) Urine Squamous Epithelial Cells Mod /LPF Urine Bacteria Few /HPF (0-FEW) Urine Hyaline Casts Few /HPF Urine Mucus Mod /LPF White Blood Count 11.2 x10^3/uL (4.0-11.0) H Red Blood Count 4.77 x10^6/uL (3.50-5.40) Hemoglobin 11.9 g/dL (12.0-15.5) L Hematocrit 38.4 % (36.0-47.0) Mean Corpuscular Volume 81 fL (79-100) Mean Corpuscular Hemoglobin 25 pg (25-35) Mean Corpuscular Hemoglobin Concent 31 g/dL (31-37) Red Cell Distribution Width 17.9 % (11.5-14.5) H Platelet Count 297 x10^3/uL (140-400) Neutrophils (%) (Auto) 49 % (31-73) Lymphocytes (%) (Auto) 43 % (24-48) Monocytes (%) (Auto) 6 % (0-9) Eosinophils (%) (Auto) 1 % (0-3) Basophils (%) (Auto) 1 % (0-3) Neutrophils # (Auto) 5.5 x10^3uL (1.8-7.7) Lymphocytes # (Auto) 4.8 x10^3/uL (1.0-4.8) Monocytes # (Auto) 0.7 x10^3/uL (0.0-1.1) Eosinophils # (Auto) 0.1 x10^3/uL (0.0-0.7) Basophils # (Auto) 0.1 x10^3/uL (0.0-0.2) Sodium Level 140 mmol/L (136-145) Potassium Level 3.5 mmol/L (3.5-5.1) Chloride Level 105 mmol/L (98-107) Carbon Dioxide Level 25 mmol/L (21-32) Anion Gap 10 (6-14) Blood Urea Nitrogen 18 mg/dL (7-20) Creatinine 1.2 mg/dL (0.6-1.0) H Estimated GFR (Cockcroft-Gault) 50.6 Glucose Level 128 mg/dL (70-99) H Calcium Level 9.0 mg/dL (8.5-10.1) Troponin I Quantitative < 0.017 ng/mL (0.000-0.055) XA-Rkw-Q-Type Natriuretic Peptide 912 pg/mL (0-124) H Laboratory Tests 01/05/17 02:50 Laboratory Tests 01/05/17 02:50 EKG EKG EKG as interpreted by me shows a sinus tachycardia with rate 109 bpm. QTc interval is prolonged at 500 ms. There is no acute injury pattern seen. There does appear to be a degree of LVH. Radiology/Procedures Radiology/Procedures One view of the chest as interpreted by me reveals moderate cardiomegaly but no acute process. Course & Med Decision Making Course & Med Decision Making Pertinent Labs and Imaging studies reviewed. (See chart for details) 36-year-old female with history of significant cardiomyopathy with a severely reduced EF will be likely be admitted to the hospital. Doses of IV Lasix will be given and breathing treatment. After workup indicates a slightly elevated BNP of 912. Rest her laboratory workup was unremarkable. Her EKG and chest x-ray were also fairly unremarkable besides a persisting sinus tachycardia. Patient is still requiring supplementary oxygen and will be admitted to the hospital for likely CHF exacerbation. She is still profoundly orthopneic and has inability to lie flat. Patient was given IV Lasix and a breathing treatment. I will discuss the need to admit the patient with the hospitalist, Dr. Green, as well as place a cardiology consult and repeat troponins for the floor. Dragon Disclaimer Dragon Disclaimer This electronic medical record was generated, in whole or in part, using a voice recognition dictation system. Departure Departure Impression: Primary Impression: CHF exacerbation Disposition: ADMITTED INPATIENT Admitting Physician: Mary Green Condition: STABLE Referrals: UNKNOWN PCP NAME (PCP) KASSIE SHIRLEY DO January 05, 2017 02:46
[2017-01-05] MEDS ORDERED: IPRATRPIUM/ALBUTEROL 0.5/2.5MG 3 ML NEBU. NEB ONE (03:00)
[2017-01-05 03:12] LABS: BILIRUBIN,URINE NEGATIVE (NEG); GLUCOSE,URINE NEGATIVE (NEG); NITRITE,URINE NEGATIVE (NEG); PH,URINE 5.5; PROTEIN,URINE 30 mg/dL (NEG-TRACE)
[2017-01-05] MEDS ORDERED: FUROSEMIDE 40 MG/4 ML VIAL. IVP ONE (03:15)
[2017-01-05 03:41] LABS: BACTERIA,URINE FEW /HPF (0-FEW); RBC,URINE OCC /HPF (0-2); SQUAMOUS EPITHELIAL CELL,UR MOD /LPF; WBC,URINE OCC /HPF (0-4)
[2017-01-05 03:48] LABS: BASO # 0.1 x10^3/uL (0.0-0.2); BASO % 1 % (0-3); EOS % 1 % (0-3); HEMATOCRIT 38.4 % (36.0-47.0); HEMOGLOBIN 11.9 g/dL (12.0-15.5); LYMPH # 4.8 x10^3/uL (1.0-4.8); LYMPH % 43 % (24-48); MEAN CORPUSCULAR HEMOGLOBIN 25 pg (25-35); MEAN CORPUSCULAR HGB CONC 31 g/dL (31-37); MEAN CORPUSCULAR VOLUME 81 fL (79-100); MONO % 6 % (0-9); NEUT % 49 % (31-73); PLATELET COUNT 297 x10^3/uL (140-400); RED BLOOD COUNT 4.77 x10^6/uL (3.50-5.40); RED CELL DISTRIBUTION WIDTH 17.9 % (11.5-14.5); WHITE BLOOD COUNT 11.2 x10^3/uL (4.0-11.0)
[2017-01-05 03:59] LABS: CREATININE 1.2 mg/dL (0.6-1.0); GFR 50.6; POTASSIUM 3.5 mmol/L (3.5-5.1)
[2017-01-05] MEDS ORDERED: ONDANSETRON PF 4 MG/2 ML VIAL. IV PRN ×2 (04:15→10:00)
[2017-01-05 04:45] VITALS: BP 111/76
--- NOTE | 2017-01-05 04:47 | ACF ---
Admission Forms Criteria HEART FAILURE Clinical Indications for Admission to Inpatient Care (Place 'X' for any and all applicable criteria): Admission is indicated by ANY ONE of the following(1)(2)(3)(4): [ ]I. Severe electrolyte abnormalities requiring inpatient care(9) [ ]II. Hemodynamic instability [ ]III. Anasarca [ ]IV. Acute cardiac ischemia causing or associated with failure (Also use Angina or Myocardial Infarction as appropriate) [ ]V. Cardiac arrhythmias of immediate concern [ ]. Precipitating cause for acute decompensation (eg, pneumonia, pulmonary embolism) requires inpatient care [ ]VII. Pulmonary edema that is very severe (eg, mechanical ventilation needed, imminent or likely, need for 100% oxygen to keep oxygen saturation above 90%) [ ]VIII. Inpatient admission required rather than observation care (Also use Heart Failure: Observation Care as appropriate) because of ANY ONE of the following: [ ]a) Pulmonary edema that is severe or worsening as indicated by ALL of the following: [ ]i) New need for oxygen therapy to keep oxygen saturation above 90% (or increased FiO2 need from baseline) [ ]ii) Has not improved sufficiently with emergency department or observation care IV diuretics or other heart failure treatments[C] [ ]b) Cognitive impairment that is severe or persistent [ ]c) Increased creatinine (new on laboratory test) with reduction of more than 50% in estimated glomerular filtration rate from baseline. [ ]d) Acute renal insufficiency (progressively (ongoing) rising creatinine (known from past laboratory test) with reduction of more than 25% in estimated glomerular filtration rate from baseline) [ ]e) Acute peripheral ischemia (eg, pulseless, cool, mottled, or cyanotic extremity) [ ]f) Acute renal failure [ ]g) Supplemental O2 or respiratory treatment for >24 hr that are performable only in acute inpatient setting [ ]h) Pulmonary artery catheter monitoring [ ]i) Other condition, treatment or monitoring requiring inpatient admission [X]IX. Contraindications and/or Inappropriate clinical situations for Observational Care in patients with Heart Failure, when ANY ONE of the following is required: [ ]a) Patient with High risk of cardiac embolism (e.g, patients with previous cardiac embolism, LVEF < 40%, age >75 and patients with prosthetic valve) 18 [ ]b) Patient with Moderate risk including DM patient, CAD and patient aged 65-75 [ ]c) Patient with any change in cardiac biomarker especially troponin should be managed as high risk in an inpatient setting 19 [ ]d) Physician judgement irrespective of ECG and other diagnostic findings 20 [ ]e) Patients with hyponatremia have high risk for mortality and require more extensive care and length of stay 21 [X]f) Need for large volume diuresis 21 [ ]g) Presence of renal insufficiency or hypotension limiting speed of diuresis 21 [ ]h) Acute cardiac Ischemia in the elderly 21 [ ]i) Patients with a 30 day risk of mortality based on a multidimensional prognostic index (MPI) [J,]21 [ ]X. General contraindications and/or Inappropriate clinical situations for Observational Care in patients with Heart Failure, when ANY ONE of the following is required: [ ]a) Prediction of prolongation of LOS based on ANY ONE of the following may be considered as a contraindication for observational care 2, 3, 4, 5, 6, 7, 8 , 9, 10, 11 [ ]i) Age > 65 yrs. [ ]ii) Patient arriving by ambulance [ ]iii) Patient with high acuity [ ]iv) Patient requiring vital sign monitoring [ ]v) Patient on IV medication [ ]b) Systolic blood pressures 180mmHg 3,12 [ ]c) Patient with altered mental status including delirium and other alteration of consciousness, (3) [ ]d) Patient whose discharge disposition will be to a retirement home or rehabilitation home should not be managed in Emergency Department Observation Unit. CMS rule requires 3 days hospital stay before such placement.3,13 [ ]e) Patient with failure to thrive due to broad array of etiologies 3,16,17 [ ]f) Inability to ambulate 3,14 Extended stay beyond goal length of stay may be needed for(1)(3)(21)(25): [ ]a) Cardiac ischemia, confirmed or suspected as precipitant [ ]b) Cardiogenic shock or refractory pulmonary edema [ ]c) Acute kidney injury or renal failure [ ]d) Respiratory failure (eg, need for noninvasive or invasive mechanical ventilation) (23) [ ]e) Concomitant pneumonia or significant electrolyte abnormality (eg, severe hyponatremia) [ ]f) Newly diagnosed (new onset) atrial fibrillation [ ]g) Stage IV chronic kidney disease (estimated glomerular filtration rate of less than 30 mL/min/1.73m2 (0.50 mL/sec/1.73m2), and not previously on chronic dialysis The original [facility] content created by [facility] has been revised. The portions of the content which have been revised are identified through the use of italic text or in bold, and [employer] license of [facility] [place] has neither reviewed nor approved the modified material. All other unmodified content is copyright [facility]. Please see references footnoted in the original [facility] edition 2016 Admission Criteria Met?: Yes URBANO FUCHS January 05, 2017 04:47
[2017-01-05 07:00] VITALS: BP 93/54
--- NOTE | 2017-01-05 07:09 | RAD ---
Portable chest, 01/05/2017: History: Shortness of breath Comparison is made to a study from 12/26/2016. The heart is enlarged. The pulmonary vascularity is normal. No pulmonary infiltrates are seen. There is no evidence of pleural fluid. IMPRESSION: 1. Unchanged cardiomegaly. 2. No acute abnormality is detected.
--- NOTE | 2017-01-05 07:26 | EKG ---
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
[2017-01-05] MEDS: IPRATRPIUM/ALBUTEROL 0.5/2.5MG 3 ML NEBU. NEB SCH ×3 (08:00→15:27)
--- NOTE | 2017-01-05 09:53 | PDOC1 ---
History and Physical Past Medical History Cardiovascular: HTN Pulmonary: Asthma CENTRAL NERVOUS SYSTEM: Other GI: No pertinent hx Heme/Onc: No pertinent hx Hepatobiliary: No pertinent hx Psych: No pertinent hx Rheumatologic: No pertinent hx Infectious disease: No pertinent hx Renal/: No pertinent hx Endocrine: No pertinent hx Past Surgical History Past Surgical History: , Hernia Repair, Tubal Ligation, Other Family History Family History: Coronary Artery Disease Social History ALCOHOL: occassional Drugs: None Current Medications Current Medications Current Medications Medications (Trade) Dose Ordered Sig/Ed Start Time Stop Time Status Last Admin Dose Admin Albuterol/ Ipratropium (Duoneb) 3 ml RTQID 01/05/17 08:00 01/06/17 07:59 01/05/17 08:00 3 ML Furosemide (Lasix) 40 mg 1X ONCE 01/05/17 03:15 01/05/17 03:16 DC 01/05/17 03:29 40 MG Ondansetron HCl (Zofran) 4 mg PRN Q8HRS PRN 01/05/17 04:15 01/06/17 04:14 Allergies Allergies Allergies Coded Allergies Type Severity Reaction Last Updated Verified No Known Drug Allergies 09/21/16 No ROS Review of System CONSTITUTIONAL: No fever or chills EYES: No recent changes SKIN: No rash or itching CARDIOVASCULAR: No chest pain, syncope, palpitations, or edema RESPIRATORY: No SOB or cough GASTROINTESTINAL: No nausea, vomiting or abdominal pain NEUROLOGICAL: No headaches or weakness ENDOCRINE: No cold or heat intolerance GENITOURINARY: No urgency or frequency of urination MUSCULOSKELETAL: No back pain or joint pain LYMPHATICS: No enlarged lymph nodes PSYCHIATRIC: No anxiety or depression Physical Exam Physical Exam GEN.: No apparent distress. Alert and oriented. HEENT: Head is normocephalic, atraumatic NECK: Supple. LUNGS: Clear to auscultation. HEART: RRR, S1, S2 present. Peripheral pulses intact ABDOMEN: Soft, nontender. Positive bowel sounds. EXTREMITIES: Without any cyanosis. NEUROLOGIC: Normal speech, normal tone PSYCHIATRIC: Normal affect, normal mood. SKIN: No ulcerations Vitals Vitals Vital Signs Date Time Temp Pulse Resp B/P (MAP) Pulse Ox O2 Delivery O2 Flow Rate FiO2 01/05/17 08:54 98 Nasal Cannula 2.5 01/05/17 07:00 98.2 95 20 93/54 (67) 98.2 Labs Labs Laboratory Tests Test 01/05/17 02:01 01/05/17 02:46 01/05/17 02:50 Bedside Urine HCG, Qualitative Hcg negative (Negative) Urine Collection Type Unknown Urine Color Yellow Urine Clarity Clear Urine pH 5.5 Urine Specific [place] 1.020 Urine Protein 30 mg/dL (NEG-TRACE) Urine Glucose (UA) Negative mg/dL (NEG) Urine Ketones (Stick) Negative mg/dL (NEG) Urine Blood Negative (NEG) Urine Nitrite Negative (NEG) Urine Bilirubin Negative (NEG) Urine Urobilinogen Dipstick 1.0 mg/dL (0.2 mg/dL) Urine Leukocyte Esterase Negative (NEG) Urine RBC Occ /HPF (0-2) Urine WBC Occ /HPF (0-4) Urine Squamous Epithelial Cells Mod /LPF Urine Bacteria Few /HPF (0-FEW) Urine Hyaline Casts Few /HPF Urine Mucus Mod /LPF White Blood Count 11.2 x10^3/uL (4.0-11.0) Red Blood Count 4.77 x10^6/uL (3.50-5.40) Hemoglobin 11.9 g/dL (12.0-15.5) Hematocrit 38.4 % (36.0-47.0) Mean Corpuscular Volume 81 fL (79-100) Mean Corpuscular Hemoglobin 25 pg (25-35) Mean Corpuscular Hemoglobin Concent 31 g/dL (31-37) Red Cell Distribution Width 17.9 % (11.5-14.5) Platelet Count 297 x10^3/uL (140-400) Neutrophils (%) (Auto) 49 % (31-73) Lymphocytes (%) (Auto) 43 % (24-48) Monocytes (%) (Auto) 6 % (0-9) Eosinophils (%) (Auto) 1 % (0-3) Basophils (%) (Auto) 1 % (0-3) Neutrophils # (Auto) 5.5 x10^3uL (1.8-7.7) Lymphocytes # (Auto) 4.8 x10^3/uL (1.0-4.8) Monocytes # (Auto) 0.7 x10^3/uL (0.0-1.1) Eosinophils # (Auto) 0.1 x10^3/uL (0.0-0.7) Basophils # (Auto) 0.1 x10^3/uL (0.0-0.2) Sodium Level 140 mmol/L (136-145) Potassium Level 3.5 mmol/L (3.5-5.1) Chloride Level 105 mmol/L (98-107) Carbon Dioxide Level 25 mmol/L (21-32) Anion Gap 10 (6-14) Blood Urea Nitrogen 18 mg/dL (7-20) Creatinine 1.2 mg/dL (0.6-1.0) Estimated GFR (Cockcroft-Gault) 50.6 Glucose Level 128 mg/dL (70-99) Calcium Level 9.0 mg/dL (8.5-10.1) Troponin I Quantitative < 0.017 ng/mL (0.000-0.055) LD-Bmn-C-Type Natriuretic Peptide 912 pg/mL (0-124) Laboratory Tests Test 01/05/17 02:01 01/05/17 02:46 01/05/17 02:50 Bedside Urine HCG, Qualitative Hcg negative (Negative) Urine Collection Type Unknown Urine Color Yellow Urine Clarity Clear Urine pH 5.5 Urine Specific [place] 1.020 Urine Protein 30 mg/dL (NEG-TRACE) Urine Glucose (UA) Negative mg/dL (NEG) Urine Ketones (Stick) Negative mg/dL (NEG) Urine Blood Negative (NEG) Urine Nitrite Negative (NEG) Urine Bilirubin Negative (NEG) Urine Urobilinogen Dipstick 1.0 mg/dL (0.2 mg/dL) Urine Leukocyte Esterase Negative (NEG) Urine RBC Occ /HPF (0-2) Urine WBC Occ /HPF (0-4) Urine Squamous Epithelial Cells Mod /LPF Urine Bacteria Few /HPF (0-FEW) Urine Hyaline Casts Few /HPF Urine Mucus Mod /LPF White Blood Count 11.2 x10^3/uL (4.0-11.0) Red Blood Count 4.77 x10^6/uL (3.50-5.40) Hemoglobin 11.9 g/dL (12.0-15.5) Hematocrit 38.4 % (36.0-47.0) Mean Corpuscular Volume 81 fL (79-100) Mean Corpuscular Hemoglobin 25 pg (25-35) Mean Corpuscular Hemoglobin Concent 31 g/dL (31-37) Red Cell Distribution Width 17.9 % (11.5-14.5) Platelet Count 297 x10^3/uL (140-400) Neutrophils (%) (Auto) 49 % (31-73) Lymphocytes (%) (Auto) 43 % (24-48) Monocytes (%) (Auto) 6 % (0-9) Eosinophils (%) (Auto) 1 % (0-3) Basophils (%) (Auto) 1 % (0-3) Neutrophils # (Auto) 5.5 x10^3uL (1.8-7.7) Lymphocytes # (Auto) 4.8 x10^3/uL (1.0-4.8) Monocytes # (Auto) 0.7 x10^3/uL (0.0-1.1) Eosinophils # (Auto) 0.1 x10^3/uL (0.0-0.7) Basophils # (Auto) 0.1 x10^3/uL (0.0-0.2) Sodium Level 140 mmol/L (136-145) Potassium Level 3.5 mmol/L (3.5-5.1) Chloride Level 105 mmol/L (98-107) Carbon Dioxide Level 25 mmol/L (21-32) Anion Gap 10 (6-14) Blood Urea Nitrogen 18 mg/dL (7-20) Creatinine 1.2 mg/dL (0.6-1.0) Estimated GFR (Cockcroft-Gault) 50.6 Glucose Level 128 mg/dL (70-99) Calcium Level 9.0 mg/dL (8.5-10.1) Troponin I Quantitative < 0.017 ng/mL (0.000-0.055) YT-Izq-R-Type Natriuretic Peptide 912 pg/mL (0-124) VTE Prophylaxis Ordered VTE Prophylaxis Devices: Yes AUBREY SINHA MD January 05, 2017 09:53
[2017-01-05] MEDS ORDERED: ALBUTEROL SULFATE 2.5 MG/3 ML NEBU. NEB PRN ×2 (10:00)
[2017-01-05] MEDS ORDERED: ACETAMINOPHEN 325 MG TABLET. PO PRN (10:00)
[2017-01-05] MEDS ORDERED: FUROSEMIDE 40 MG TABLET. PO SCH (10:00)
[2017-01-05] MEDS ORDERED: POTASSIUM CHLORIDE 10 MEQ TABLET.ER. PO SCH (10:00)
[2017-01-05] MEDS ORDERED: LISINOPRIL 2.5 MG TABLET PO SCH (10:00)
[2017-01-05] MEDS ORDERED: hydrALAZINE 20 MG/ML VIAL. IVP PRN (10:00)
[2017-01-05] MEDS ORDERED: METOPROLOL SUCC 24HR ER 50 MG TAB.ER.24H. PO SCH (10:00)
[2017-01-05] MEDS ORDERED: HYDROcodone/APAP 5/325MG 1 TAB TABLET PO PRN (10:00)
--- NOTE | 2017-01-05 10:17 | PDOC2 ---
CARDIAC CONSULT DATE OF CONSULT Date of Consult DATE: 01/05/17 TIME: 09:57 REASON FOR CONSULT Reason for Consult: CHF Exacerbation REFERRING PHYSICIAN Referring Physician: Dr. 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 Patient reports symptoms began around 1am this morning. Reports laying down in bed and feeling significantly short of air. Took breathing treat without any significant relief. Symptoms persisted so she came into the ED for further evaluation. Reports compliance with Lasix and Na restricted diet. Has not been restricting/monitoring fluid and has been drinking "lots" of fluids. PAST MEDICAL HISTORY Past Medical History Cardiovascular: HTN (preeclampsia), post- cardiomyopathy Pulmonary: Asthma CENTRAL NERVOUS SYSTEM: Other (No pertinent history) GI: No pertinent hx Heme/Onc: No pertinent hx Hepatobiliary: No pertinent hx Psych: No pertinent hx Musculoskeletal: Other (None) Rheumatologic: No pertinent hx Infectious disease: No pertinent hx ENT: Allergic Rhinitis Renal/: No pertinent hx Endocrine: No pertinent hx Dermatology: No pertinent hx Grav: 5 Para: 4 PAST SURGICAL HISTORY Past Surgical History , Hernia Repair, Tubal Ligation, Other (1 miscarriage) FAMILY HISTORY Family History: Coronary Artery Disease SOCIAL HISTORY Social History Smoke: No ALCOHOL: occassional Drugs: None Lives: with Family CURRENT MEDICATIONS CURRENT MEDICATIONS Current Medications Medications (Trade) Dose Ordered Sig/Ed Route PRN Reason Start Time Stop Time Status Last Admin Dose Admin Albuterol/ Ipratropium (Duoneb) 3 ml 1X ONCE NEB 01/05/17 03:00 01/05/17 03:01 DC 01/05/17 03:09 Furosemide (Lasix) 40 mg 1X ONCE IVP 01/05/17 03:15 01/05/17 03:16 DC 01/05/17 03:29 Albuterol/ Ipratropium (Duoneb) 3 ml RTQID NEB 01/05/17 08:00 01/06/17 07:59 01/05/17 08:00 ALLERGIES ALLERGIES: Coded Allergies: No Known Drug Allergies (Unverified , 09/21/16) ROS Review of System 14 point ROS conducted with pertinent positives noted above in HPI. PHYSICAL EXAM PHYSICAL EXAM General: Alert, Oriented X3, Cooperative, No acute distress HEENT: Atraumatic, Mucous membr. moist/pink Lungs: Clear to auscultation, Normal air movement Heart: Regular rate (tele: SR LBBB), Normal S1, Normal S2, Abdomen: Soft, No tenderness Extremities: No cyanosis, No edena Skin: No breakdown, No significant lesion Neuro: Normal speech, Sensation intact Psych/Mental Status: Mental status NL, Mood NL MUSCULOSKELETAL: Full range of motion without pain VITALS VITALS Vital Signs Date Time Temp Pulse Resp B/P (MAP) Pulse Ox O2 Delivery O2 Flow Rate FiO2 01/05/17 08:54 98 Nasal Cannula 2.5 01/05/17 07:00 98.2 95 20 93/54 (67) 98.2 LABS Lab: Laboratory Tests Test 01/05/17 02:01 01/05/17 02:46 01/05/17 02:50 Bedside Urine HCG, Qualitative Hcg negative (Negative) Urine Collection Type Unknown Urine Color Yellow Urine Clarity Clear Urine pH 5.5 Urine Specific [place] 1.020 Urine Protein 30 mg/dL (NEG-TRACE) Urine Glucose (UA) Negative mg/dL (NEG) Urine Ketones (Stick) Negative mg/dL (NEG) Urine Blood Negative (NEG) Urine Nitrite Negative (NEG) Urine Bilirubin Negative (NEG) Urine Urobilinogen Dipstick 1.0 mg/dL (0.2 mg/dL) Urine Leukocyte Esterase Negative (NEG) Urine RBC Occ /HPF (0-2) Urine WBC Occ /HPF (0-4) Urine Squamous Epithelial Cells Mod /LPF Urine Bacteria Few /HPF (0-FEW) Urine Hyaline Casts Few /HPF Urine Mucus Mod /LPF White Blood Count 11.2 x10^3/uL (4.0-11.0) Red Blood Count 4.77 x10^6/uL (3.50-5.40) Hemoglobin 11.9 g/dL (12.0-15.5) Hematocrit 38.4 % (36.0-47.0) Mean Corpuscular Volume 81 fL (79-100) Mean Corpuscular Hemoglobin 25 pg (25-35) Mean Corpuscular Hemoglobin Concent 31 g/dL (31-37) Red Cell Distribution Width 17.9 % (11.5-14.5) Platelet Count 297 x10^3/uL (140-400) Neutrophils (%) (Auto) 49 % (31-73) Lymphocytes (%) (Auto) 43 % (24-48) Monocytes (%) (Auto) 6 % (0-9) Eosinophils (%) (Auto) 1 % (0-3) Basophils (%) (Auto) 1 % (0-3) Neutrophils # (Auto) 5.5 x10^3uL (1.8-7.7) Lymphocytes # (Auto) 4.8 x10^3/uL (1.0-4.8) Monocytes # (Auto) 0.7 x10^3/uL (0.0-1.1) Eosinophils # (Auto) 0.1 x10^3/uL (0.0-0.7) Basophils # (Auto) 0.1 x10^3/uL (0.0-0.2) Sodium Level 140 mmol/L (136-145) Potassium Level 3.5 mmol/L (3.5-5.1) Chloride Level 105 mmol/L (98-107) Carbon Dioxide Level 25 mmol/L (21-32) Anion Gap 10 (6-14) Blood Urea Nitrogen 18 mg/dL (7-20) Creatinine 1.2 mg/dL (0.6-1.0) Estimated GFR (Cockcroft-Gault) 50.6 Glucose Level 128 mg/dL (70-99) Calcium Level 9.0 mg/dL (8.5-10.1) Troponin I Quantitative < 0.017 ng/mL (0.000-0.055) VR-Ttt-V-Type Natriuretic Peptide 912 pg/mL (0-124) ECHOCARDIOGRAM ECHOCARDIOGRAM <Conclusion> Left ventricle systolic function is severely impaired. The Ejection Fraction is 10-15%. There is severe global hypokinesis of the left ventricle. DATE: 12/26/16 0958 HEART CATH HEART CATH FINDINGS 1. Hemodynamics: Left ventricular end-diastolic pressure of 27 mmHg. No pullback gradient across the aortic valve. 2. Left ventriculography: Severe global left ventricular systolic dysfunction with ejection fraction estimated at 15-20%. No significant mitral regurgitation seen. 3. Coronary angiography: a. The left main coronary artery arose from the left sinus of Valsalva, gave rise to the left anterior descending and left circumflex arteries and did not show any significant stenosis. b. The left anterior descending artery did not show any significant stenosis. c. The left circumflex artery did not show any significant stenosis. d. The right coronary artery was a large and dominant vessel arising from the right sinus of Valsalva that did not show any significant stenosis. Conclusion 1. No significant coronary artery disease 2. Severe global left ventricular systolic dysfunction with ejection fraction estimated at 15-20% DATE: 12/26/16 1305 ASSESSMENT/PLAN ASSESSMENT/PLAN 1. Acute on chronic systolic CHF 2. Cardiomyopathy, non-ischemic: LVEF 10-15% 3. Dyspnea 4. : early delivery via C section 11/17/2016 5. Hx of preeclampsia with recent 6. Morbid obesity 7. HTN Recommendations Continue optimization therapy. Compensated from HF standpoint; continue routine oral Lasix. 2000cc FR. 2Gm Na diet; d/w patient and mother Echo in 3 months to re-evaluate LV function and assess need for ICD in primary prevention of SCD Follow-up in our office with Dr. Jacobson as previously scheduled. Problems: PARUL ROSS APRN January 05, 2017 10:17
[2017-01-05 11:25] VITALS: BP 105/59
[2017-01-05 15:00] VITALS: BP 101/57
[2017-01-05] MEDS ORDERED: ATORVASTATIN CALCIUM 40 MG TABLET. PO SCH (21:00)
--- NOTE | 2017-01-05 23:26 | DS ---
DATE OF DISCHARGE: 01/05/2017 CHIEF COMPLAINT: Shortness of breath. HISTORY OF PRESENT ILLNESS: This is a 36-year-old female patient with prior history of recent diagnosis of preeclampsia and post- cardiomyopathy with ejection fraction 10%-15%, who was discharged from the hospital in the past week and presented back to the hospital with acute shortness of breath. Symptoms started early this morning. The patient tried using inhalers at home; however, her symptoms did not improve ____. She denies any chest pain, palpitations or leg swelling. She says that she is compliant with her diet and medications, but she is using a lot of fluids recently, which could be a contributing factor. Symptoms improved with IV Lasix in the ER. PAST MEDICAL HISTORY: Hypertension, preeclampsia, post- cardiomyopathy, asthma, and allergic rhinitis. PAST SURGICAL HISTORY: C section, hernia repair, and tubal ligation. FAMILY HISTORY: Coronary artery disease. SOCIAL HISTORY: No smoking. Occasionally takes alcohol. ALLERGIES: NKDA. LABORATORY FINDINGS: CBC within normal limits. Chemistry within normal limits, except for BUN is 10 and creatinine is 1.2. Glucose is 128. Urinalysis: ____ nitrites negative, and leukocyte esterase negative. Chest x-ray: Unchanged cardiomegaly, no acute cardiopulmonary process is seen. ASSESSMENT AND PLAN: 1. Possible exacerbation of systolic congestive heart failure. 2. Cardiomyopathy - nonischemic. Left ventricular ejection fraction 10%-15%. 3. Recent diagnosis of preeclampsia. 4. Morbid obesity and hypertension. 5. Recent history of section in November 2016. BRIEF HOSPITAL COURSE: This is a 36-year-old female, admitted to the hospital for acute shortness of breath and she received IV Lasix in the ER and her labs including two sets of troponins were normal. Allergic to medications. She has been evaluated by cardiology team and recommended the patient to take home medications with fluid ____ at least 2 liters per day and to keep her appointment with Cardiology. DISCHARGE DISPOSITION: Home. DISCHARGE CONDITION: Stable. FOLLOWUP: With Cardiology. MEDICATIONS: No new changes. Continue current medications per ____ guide and discharge instructions. DISCHARGE DIET: Low-salt diet. Total time spent for H and P and discharge summary is 55 minutes. AUBREY SINHA MD DR: SURINDER/[place] JOB#: [id number] / [id number]
== END 2017-01-05 17:20 | disposition home or self-care (01) | DRG 292 ==
LOC: ER 02:42 → 2 NORTH 03:15
PROVIDERS: ADMIT Internal Medicine; ATTEND Internal Medicine
DX: I11.0 Hypertensive heart disease with heart failure (principal); Z68.41 Body mass index [BMI] 40.0-44.9, adult; I42.9 Cardiomyopathy, unspecified; I50.23 Acute on chronic systolic (congestive) heart failure; E66.01 Morbid (severe) obesity due to excess calories; J45.909 Unspecified asthma, uncomplicated; Z82.49 Family history of ischemic heart disease and other diseases of the circulatory system; Z98.51 Tubal ligation status; Z72.89 Other problems related to lifestyle; Z88.8 Allergy status to other drugs, medicaments and biological substances
CPT/HCPCS: 36415; 71010; 80048; 81001; 81025; 83880; 84484; 85027; 93005; 94250; 94640; 94760; J1940; J7620

== ENCOUNTER 2019-08-02 14:33 | Inpatient (IN) | payer BC ==
[~2019-08-02] VITALS: Ht 162.6 cm; Wt 116.1 kg
[~2019-08-02 14:33] MED LIST changes: +ALBU2.5V8 INH; -PROAIR HFA8.5 GM INH
[2019-08-02] MEDS ORDERED: ASPIRIN CHEWABLE 81 MG TABLET. PO STA (15:33)
--- NOTE | 2019-08-02 15:43 | EKG ---
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
--- NOTE | 2019-08-02 15:43 | PHYS DOC ---
Past Medical History Past Medical History: Asthma, CHF, Hypertension Past Surgical History: , Tubal ligation, Other Additional Past Surgical Histo: HERNIA REPAIR, PACEMAKER/DEFIB Alcohol Use: Occasionally Drug Use: None Adult General Chief Complaint Chief Complaint: Palpitations HPI HPI Patient is a 39 year old female who presents with chest pain, palpitations, back pain has been ongoing intermittently for a few weeks. The patient states she had several episodes today. She states she had an episode 8:30 AM, 12:00, and 2 PM. The patient also states she's been having dysuria for the last couple days. She requests STD testing. She reports her pain as 7 out of 10 in severity and sharp in her chest. She has a history of congestive heart failure, has a pacemaker also has a history of hypertension. The patient has an ejection fraction that she reports 15%. Review of Systems Review of Systems Constitutional: Denies fever or chills [] Eyes: Denies change in visual acuity, redness, or eye pain [] HENT: Denies nasal congestion or sore throat [] Respiratory: Denies cough or shortness of breath [] Cardiovascular: No additional information not addressed in HPI [] GI: Denies abdominal pain, nausea, vomiting, bloody stools or diarrhea [] : Reports dysuria. Musculoskeletal: Denies back pain or joint pain [] Integument: Denies rash or skin lesions [] Neurologic: Denies headache, focal weakness or sensory changes [] Endocrine: Denies polyuria or polydipsia [] Complete systems were reviewed and found to be within normal limits, except as documented in this note. Current Medications Current Medications Current Medications Medications (Trade) Dose Ordered Sig/Ed Start Time Stop Time Status Last Admin Dose Admin Aspirin (Children'S Aspirin) 324 mg 1X STAT 08/02/19 15:33 08/02/19 15:37 DC Allergies Allergies Allergies Coded Allergies Type Severity Reaction Last Updated Verified aspirin Adverse Reaction Unknown 08/02/19 Yes ibuprofen Adverse Reaction Unknown 08/02/19 Yes Physical Exam Physical Exam Constitutional: Well developed, well nourished, no acute distress, non-toxic appearance. [] HENT: Normocephalic, atraumatic, bilateral external ears normal, oropharynx moist, no oral exudates, nose normal. [] Eyes: PERRLA, EOMI, conjunctiva normal, no discharge. [] Neck: Normal range of motion, no tenderness, supple, no stridor. [] Cardiovascular:Heart rate regular rhythm, no murmur, defibrillator noted on chest. Lungs & Thorax: Bilateral breath sounds clear to auscultation [] Abdomen: Bowel sounds normal, soft, no tenderness, no masses, no pulsatile masses. [] Skin: Warm, dry, no erythema, no rash. [] Back: No tenderness, no CVA tenderness. [] Extremities: No tenderness, no cyanosis, no clubbing, ROM intact, no edema. [] Neurologic: Alert and oriented X 3, normal motor function, normal sensory function, no focal deficits noted. [] Psychologic: Affect normal, judgement normal, mood normal. [] Pelvic Exam: External exam is normal and without rash, No CMT, OS is closed, clear discharge, uterus NTTP, No adnexal masses or tenderness noted Current Patient Data Vital Signs Vital Signs Date Time Temp Pulse Resp B/P (MAP) Pulse Ox O2 Delivery O2 Flow Rate FiO2 08/02/19 14:52 97.8 80 16 150/73 (98) 100 Room Air 97.8 Lab Values Laboratory Tests Test 08/02/19 14:52 08/02/19 15:30 Urine Collection Type Unknown Urine Color Yellow Urine Clarity Clear Urine pH 5.5 Urine Specific [place] >=1.030 Urine Protein Negative mg/dL (NEG-TRACE) Urine Glucose (UA) Negative mg/dL (NEG) Urine Ketones (Stick) Negative mg/dL (NEG) Urine Blood Moderate (NEG) Urine Nitrite Negative (NEG) Urine Bilirubin Negative (NEG) Urine Urobilinogen Dipstick 1.0 mg/dL (0.2 mg/dL) Urine Leukocyte Esterase Negative (NEG) Urine RBC Occ /HPF (0-2) Urine WBC Occ /HPF (0-4) Urine Squamous Epithelial Cells Mod /LPF Urine Bacteria Few /HPF (0-FEW) Urine Mucus Marked /LPF White Blood Count 7.9 x10^3/uL (4.0-11.0) Red Blood Count 4.24 x10^6/uL (3.50-5.40) Hemoglobin 12.1 g/dL (12.0-15.5) Hematocrit 37.0 % (36.0-47.0) Mean Corpuscular Volume 87 fL (79-100) Mean Corpuscular Hemoglobin 28 pg (25-35) Mean Corpuscular Hemoglobin Concent 33 g/dL (31-37) Red Cell Distribution Width 13.7 % (11.5-14.5) Platelet Count 228 x10^3/uL (140-400) Neutrophils (%) (Auto) 56 % (31-73) Lymphocytes (%) (Auto) 33 % (24-48) Monocytes (%) (Auto) 9 % (0-9) Eosinophils (%) (Auto) 2 % (0-3) Basophils (%) (Auto) 0 % (0-3) Neutrophils # (Auto) 4.4 x10^3/uL (1.8-7.7) Lymphocytes # (Auto) 2.6 x10^3/uL (1.0-4.8) Monocytes # (Auto) 0.7 x10^3/uL (0.0-1.1) Eosinophils # (Auto) 0.2 x10^3/uL (0.0-0.7) Basophils # (Auto) 0.0 x10^3/uL (0.0-0.2) Prothrombin Time 12.8 SEC (11.7-14.0) Prothrombin Time INR 1.0 (0.8-1.1) Activated Partial Thromboplast Time 35 SEC (24-38) Sodium Level 142 mmol/L (136-145) Potassium Level 3.5 mmol/L (3.5-5.1) Chloride Level 105 mmol/L (98-107) Carbon Dioxide Level 29 mmol/L (21-32) Anion Gap 8 (6-14) Blood Urea Nitrogen 12 mg/dL (7-20) Creatinine 1.0 mg/dL (0.6-1.0) Estimated GFR (Cockcroft-Gault) 61.4 BUN/Creatinine Ratio 12 (6-20) Glucose Level 100 mg/dL (70-99) H Calcium Level 8.8 mg/dL (8.5-10.1) Total Bilirubin 0.3 mg/dL (0.2-1.0) Aspartate Amino Transferase (AST) 15 U/L (15-37) Alanine Aminotransferase (ALT) 22 U/L (14-59) Alkaline Phosphatase 68 U/L (46-116) Creatine Kinase 128 U/L (26-192) Creatine Kinase MB (Mass) 1.0 ng/mL (0.0-3.6) Creatine Kinase MB Relative Index 0.8 % (0-4) Troponin I Quantitative < 0.017 ng/mL (0.000-0.055) KO-Cmb-E-Type Natriuretic Peptide 474 pg/mL (0-124) H Total Protein 7.6 g/dL (6.4-8.2) Albumin 3.3 g/dL (3.4-5.0) L Albumin/Globulin Ratio 0.8 (1.0-1.7) L Laboratory Tests 08/02/19 15:30 Laboratory Tests 08/02/19 15:30 Microbiology 08/02/19 Wet Prep - Final, Complete EKG EKG EKG interpreted by Dr. Miguel Angel Powers with a rate of 73, NO STEMI. Radiology/Procedures Radiology/Procedures [] Course & Med Decision Making Course & Med Decision Making Pertinent Labs and Imaging studies reviewed. (See chart for details) Will get labs, ekg, chest x-ray, and ua. Will also do pelvic exam and perform STD testing. Labs and urine are unremarkable. Patient does have Bacterial vaginosis. Am concerned about patient CP with her history. Will admit to hospital for chest pain workup. Discussed with Dr. Devlin who accepts admission ([id number]). Peyton Disclaimer Dragon Disclaimer This electronic medical record was generated, in whole or in part, using a voice recognition dictation system. Departure Departure Impression: Primary Impression: Chest pain Additional Impressions: Palpitations Bacterial vaginosis Disposition: ADMITTED INPATIENT Admitting Physician: HIMS Condition: STABLE Referrals: NO PCP (PCP) The HEART Score for CP Pts HEART Score for Chest Pain: HEART Score for Chest Pain Response (Comments) Value History Moderately Suspicious 1 ECG Nonspecific Repolarizatio 1 Age < 45 0 Risk Factors >3 Risk Factors or Hx CAD 2 Troponin < Normal Limit 0 Total 4 Risk Factors: Risk Factors: DM, Current or recent (<one month) smoker, HTN, HLP, family history of CAD, obesity. Risk Scores: Score 0 - 3: 2.5% MACE over next 6 weeks - Discharge Home Score 4 - 6: 20.3% MACE over next 6 weeks - Admit for Clinical Observation Score 7 - 10: 72.7% MACE over next 6 weeks - Early Invasive Strategies Problem Qualifiers Primary Impression: Chest pain Chest pain type: unspecified Qualified Codes: R07.9 - Chest pain, unspecified ASTER BERNABE APRN Aug 02, 2019 15:43
[2019-08-02 15:45] LABS: BASO % 0 % (0-3); EOS # 0.2 x10^3/uL (0.0-0.7); EOS % 2 % (0-3); HEMOGLOBIN 12.1 g/dL (12.0-15.5); LYMPH # 2.6 x10^3/uL (1.0-4.8); LYMPH % 33 % (24-48); MEAN CORPUSCULAR HEMOGLOBIN 28 pg (25-35); MEAN CORPUSCULAR HGB CONC 33 g/dL (31-37); MEAN CORPUSCULAR VOLUME 87 fL (79-100); MONO # 0.7 x10^3/uL (0.0-1.1); MONO % 9 % (0-9); NEUT # 4.4 x10^3/uL (1.8-7.7); NEUT % 56 % (31-73); PLATELET COUNT 228 x10^3/uL (140-400); RED BLOOD COUNT 4.24 x10^6/uL (3.50-5.40); RED CELL DISTRIBUTION WIDTH 13.7 % (11.5-14.5); WHITE BLOOD COUNT 7.9 x10^3/uL (4.0-11.0)
[2019-08-02 15:47] LABS: BILIRUBIN,URINE NEGATIVE (NEG); CLARITY,URINE CLEAR; COLOR,URINE YELLOW; NITRITE,URINE NEGATIVE (NEG); PH,URINE 5.5; PROTEIN,URINE NEGATIVE (NEG-TRACE)
[2019-08-02 15:58] LABS: PROTHROMBIN TIME PATIENT 12.8 SEC (11.7-14.0)
[2019-08-02 16:04] LABS: BACTERIA,URINE FEW /HPF (0-FEW); RBC,URINE OCC /HPF (0-2); SQUAMOUS EPITHELIAL CELL,UR MOD /LPF; WBC,URINE OCC /HPF (0-4)
[2019-08-02 16:14] LABS: CALCIUM 8.8 mg/dL (8.5-10.1); GFR 61.4; POTASSIUM 3.5 mmol/L (3.5-5.1)
[2019-08-02 16:25] LABS: ALBUMIN 3.3 g/dL (3.4-5.0); ALBUMIN/GLOBULIN RATIO 0.8 (1.0-1.7); TOTAL BILIRUBIN 0.3 mg/dL (0.2-1.0); TOTAL PROTEIN 7.6 g/dL (6.4-8.2)
--- NOTE | 2019-08-02 16:57 | RAD ---
EXAM: Chest, 2 views. HISTORY: Chest pain. Palpitations. COMPARISON: 01/05/2017. FINDINGS: 2 views of chest are obtained. There is no infiltrate, protrusion or pneumothorax. The heart is normal in size. There is a cardiac pacemaker defibrillator with leads overlying expected position. IMPRESSION: No acute pulmonary finding. Electronically signed by: Ellie Kaur MD (08/02/2019 4:54 PM) [id number]
[2019-08-02] MEDS ORDERED: NITROGLYCERIN SUBLINGUAL 0.4 MG BOTTLE OF 25. SL PRN (17:30)
[2019-08-02] MEDS ORDERED: ONDANSETRON PF 4 MG/2 ML VIAL. IV PRN ×2 (17:30→20:00)
[2019-08-02] MEDS: metroNIDAZOLE 500 MG TABLET PO SCH (17:40)
[2019-08-02] MEDS: MORPHINE SULFATE 2 MG/ML VIAL. IV PRN ×2 (17:40→22:26)
--- NOTE | 2019-08-02 18:35 | PDOC1 ---
History and Physical Date of Admission Date of Admission DATE: 08/02/19 TIME: 18:35 Identification/Chief Complaint Chief Complaint SEEN IN ER , presented with chest pain, palpitations, back pain has been ongoing intermittently for a few weeks. The patient states she had several episodes today. states she had an episode 8:30 AM, 12:00, and 2 PM. The patient also states she's been having dysuria for the last couple days. She requests STD testing. She reports her pain as 7 out of 10 in severity and sharp in her chest. has a history of congestive heart failure, has a pacemaker also has a history of hypertension. /// ejection fraction that she reports 15%. 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%, who was discharged from the hospital 12/2016 Past Medical History Past Medical History Past Medical History Past Medical History: Asthma, CHF, Hypertension Past Surgical History: , Tubal ligation, Other Additional Past Surgical Histo: HERNIA REPAIR, PACEMAKER/DEFIB Alcohol Use: Occasionally Drug Use: None fhx obesity Cardiovascular: HTN Pulmonary: Asthma CENTRAL NERVOUS SYSTEM: Other GI: No pertinent hx Heme/Onc: No pertinent hx Hepatobiliary: No pertinent hx Psych: No pertinent hx Musculoskeletal: Other Rheumatologic: No pertinent hx Infectious disease: No pertinent hx Renal/: No pertinent hx Endocrine: No pertinent hx Past Surgical History Past Surgical History: , Hernia Repair, Tubal Ligation, Other Family History Family History: Coronary Artery Disease, Hypertension, Other (mother had a pacemaker) Social History Smoke: No ALCOHOL: occassional Drugs: None Current Problem List Problem List Problems Medical Problems: (1) Bacterial vaginosis Status: Acute (2) Chest pain Status: Acute (3) Palpitations Status: Acute Current Medications Current Medications Current Medications Aspirin (Children'S Aspirin) 324 mg 1X STAT PO ; Start 08/02/19 at 15:33; Stop 08/02/19 at 15:37; Status DC Metronidazole (Flagyl) 500 mg Q12HR PO Last administered on 08/02/19at 17:40; Start 08/02/19 at 18:00 Ondansetron HCl (Zofran) 4 mg PRN Q8HRS PRN IV NAUSEA/VOMITING Last administered on 08/02/19at 17:40; Start 08/02/19 at 17:30; Stop 08/03/19 at 17:29 Morphine Sulfate (Morphine Sulfate) 2 mg PRN Q2HR PRN IV PAIN Last administered on 08/02/19at 17:40; Start 08/02/19 at 17:30; Stop 08/03/19 at 17:29 Nitroglycerin (Nitrostat) 0.4 mg PRN Q5MIN PRN SL CHEST PAIN Last administered on 08/02/19at 17:40; Start 08/02/19 at 17:30; Stop 08/03/19 at 17:29 Active Scripts Active Toprol Xl (Metoprolol Succinate) 50 Mg Tab.er.24h 1 Tab PO DAILY Klor-Con M10 (Potassium Chloride) 10 Meq Tab.er.prt 10 Meq PO DAILYWBKFT Lisinopril 2.5 Mg Tablet 2.5 Mg PO DAILY Furosemide 40 Mg Tablet 40 Mg PO DAILY Atorvastatin Calcium 40 Mg Tablet 40 Mg PO QHS Reported Proair Hfa Inhaler (Albuterol Sulfate) 8.5 Gm Hfa.aer.ad 1 Puff INH PRN Q6HRS PRN Alavert (Loratadine) 10 Mg Tab.rapdis 10 Mg PO Allergies Allergies: Coded Allergies: aspirin (Verified Adverse Reaction, Unknown, 08/02/19) CONTRAINDICATION ibuprofen (Verified Adverse Reaction, Unknown, 08/02/19) CONTRAINDICATION ROS Review of System Review of Systems Review of Systems Constitutional: Denies fever or chills [] Eyes: Denies change in visual acuity, redness, or eye pain [] HENT: Denies nasal congestion or sore throat [] Respiratory: Denies cough or shortness of breath [] Cardiovascular: No additional information not addressed in HPI [] GI: Denies abdominal pain, nausea, vomiting, bloody stools or diarrhea [] : Reports dysuria. Musculoskeletal: Denies back pain or joint pain [] Integument: Denies rash or skin lesions [] Neurologic: Denies headache, focal weakness or sensory changes [] Endocrine: Denies polyuria or polydipsia [] 14 pt systems were reviewed and found to be within normal limits, except as documented Respiratory: YES: Pleuritic Pain, SOB with excertion Cardiovascular: yes Chest Pain Gastrointestinal: No Nausea, No Vomiting, No Abdominal Pain, No Diarrhea, No Constipation, No Melena, No Hematochezia, No Other Musculoskeletal: No Gait Disturbance, No Joint Pain, No Joint Stiffness, No Joint Swelling, No Muscle Pain, No Muscular Weakness, No Pain In:, No Swelling In:, No Other Neurological: No Behavorial Changes, No Bowel/Bladder ControlChng, No Confusion, No Dizziness, No Gait Disturbance, No Headaches, No Impaired Coord/balance, No Memory Loss, No Numbness/Tingling, No Seizures, No Speech Problems, No Tremors, No Visual Changes, No Weakness, No Other Physical Exam Physical Exam Physical Exam Physical Exam Constitutional: Well developed, well nourished, no acute distress, non-toxic appearance. [] HENT: Normocephalic, atraumatic, bilateral external ears normal, oropharynx moist, no oral exudates, nose normal. [] Eyes: PERRLA, EOMI, conjunctiva normal, no discharge. [] Neck: Normal range of motion, no tenderness, supple, no stridor. [] Cardiovascular:Heart rate regular rhythm, no murmur, defibrillator noted on chest. Lungs & Thorax: Bilateral breath sounds clear to auscultation [] Abdomen: Bowel sounds normal, soft, no tenderness, no masses, no pulsatile masses. [] Skin: Warm, dry, no erythema, no rash. [] Back: No tenderness, no CVA tenderness. [] Extremities: No tenderness, no cyanosis, no clubbing, ROM intact, no edema. [] Neurologic: Alert and oriented X 3, normal motor function, normal sensory function, no focal deficits noted. [] Psychologic: Affect normal, judgement normal, mood normal. [] General: Alert, Oriented X3, Cooperative, No acute distress HEENT: Atraumatic, EOMI, Mucous membr. moist/pink Lungs: Clear to auscultation, Normal air movement Heart: no thrills Breasts: Not examined Abdomen: Normal bowel sounds, Soft, No tenderness Rectal Exam: not examined PELVIC: Examination not indicated Extremities: No clubbing, No cyanosis Neuro: Normal speech, Cranial nerves 3-12 NL Psych/Mental Status: Mental status NL, Mood NL Vitals Vitals Vital Signs Date Time Temp Pulse Resp B/P (MAP) Pulse Ox O2 Delivery O2 Flow Rate FiO2 08/02/19 17:40 76 140/78 08/02/19 17:40 16 100 Room Air 12/17/19 14:52 97.8 97.8 Labs Labs Laboratory Tests Test 08/02/19 14:52 08/02/19 15:30 Urine Collection Type Unknown Urine Color Yellow Urine Clarity Clear Urine pH 5.5 Urine Specific [place] >=1.030 Urine Protein Negative mg/dL (NEG-TRACE) Urine Glucose (UA) Negative mg/dL (NEG) Urine Ketones (Stick) Negative mg/dL (NEG) Urine Blood Moderate (NEG) Urine Nitrite Negative (NEG) Urine Bilirubin Negative (NEG) Urine Urobilinogen Dipstick 1.0 mg/dL (0.2 mg/dL) Urine Leukocyte Esterase Negative (NEG) Urine RBC Occ /HPF (0-2) Urine WBC Occ /HPF (0-4) Urine Squamous Epithelial Cells Mod /LPF Urine Bacteria Few /HPF (0-FEW) Urine Mucus Marked /LPF White Blood Count 7.9 x10^3/uL (4.0-11.0) Red Blood Count 4.24 x10^6/uL (3.50-5.40) Hemoglobin 12.1 g/dL (12.0-15.5) Hematocrit 37.0 % (36.0-47.0) Mean Corpuscular Volume 87 fL (79-100) Mean Corpuscular Hemoglobin 28 pg (25-35) Mean Corpuscular Hemoglobin Concent 33 g/dL (31-37) Red Cell Distribution Width 13.7 % (11.5-14.5) Platelet Count 228 x10^3/uL (140-400) Neutrophils (%) (Auto) 56 % (31-73) Lymphocytes (%) (Auto) 33 % (24-48) Monocytes (%) (Auto) 9 % (0-9) Eosinophils (%) (Auto) 2 % (0-3) Basophils (%) (Auto) 0 % (0-3) Neutrophils # (Auto) 4.4 x10^3/uL (1.8-7.7) Lymphocytes # (Auto) 2.6 x10^3/uL (1.0-4.8) Monocytes # (Auto) 0.7 x10^3/uL (0.0-1.1) Eosinophils # (Auto) 0.2 x10^3/uL (0.0-0.7) Basophils # (Auto) 0.0 x10^3/uL (0.0-0.2) Prothrombin Time 12.8 SEC (11.7-14.0) Prothromb Time International Ratio 1.0 (0.8-1.1) Activated Partial Thromboplast Time 35 SEC (24-38) Sodium Level 142 mmol/L (136-145) Potassium Level 3.5 mmol/L (3.5-5.1) Chloride Level 105 mmol/L (98-107) Carbon Dioxide Level 29 mmol/L (21-32) Anion Gap 8 (6-14) Blood Urea Nitrogen 12 mg/dL (7-20) Creatinine 1.0 mg/dL (0.6-1.0) Estimated GFR (Cockcroft-Gault) 61.4 BUN/Creatinine Ratio 12 (6-20) Glucose Level 100 mg/dL (70-99) Calcium Level 8.8 mg/dL (8.5-10.1) Total Bilirubin 0.3 mg/dL (0.2-1.0) Aspartate Amino Transf (AST/SGOT) 15 U/L (15-37) Alanine Aminotransferase (ALT/SGPT) 22 U/L (14-59) Alkaline Phosphatase 68 U/L (46-116) Creatine Kinase 128 U/L (26-192) Creatine Kinase MB (Mass) 1.0 ng/mL (0.0-3.6) Creatine Kinase MB Relative Index 0.8 % (0-4) Troponin I Quantitative < 0.017 ng/mL (0.000-0.055) GV-Sjb-[id number]-Type Natriuretic Peptide 474 pg/mL (0-124) Total Protein 7.6 g/dL (6.4-8.2) Albumin 3.3 g/dL (3.4-5.0) Albumin/Globulin Ratio 0.8 (1.0-1.7) Laboratory Tests Test 08/02/19 14:52 08/02/19 15:30 Urine Collection Type Unknown Urine Color Yellow Urine Clarity Clear Urine pH 5.5 Urine Specific [place] >=1.030 Urine Protein Negative mg/dL (NEG-TRACE) Urine Glucose (UA) Negative mg/dL (NEG) Urine Ketones (Stick) Negative mg/dL (NEG) Urine Blood Moderate (NEG) Urine Nitrite Negative (NEG) Urine Bilirubin Negative (NEG) Urine Urobilinogen Dipstick 1.0 mg/dL (0.2 mg/dL) Urine Leukocyte Esterase Negative (NEG) Urine RBC Occ /HPF (0-2) Urine WBC Occ /HPF (0-4) Urine Squamous Epithelial Cells Mod /LPF Urine Bacteria Few /HPF (0-FEW) Urine Mucus Marked /LPF White Blood Count 7.9 x10^3/uL (4.0-11.0) Red Blood Count 4.24 x10^6/uL (3.50-5.40) Hemoglobin 12.1 g/dL (12.0-15.5) Hematocrit 37.0 % (36.0-47.0) Mean Corpuscular Volume 87 fL (79-100) Mean Corpuscular Hemoglobin 28 pg (25-35) Mean Corpuscular Hemoglobin Concent 33 g/dL (31-37) Red Cell Distribution Width 13.7 % (11.5-14.5) Platelet Count 228 x10^3/uL (140-400) Neutrophils (%) (Auto) 56 % (31-73) Lymphocytes (%) (Auto) 33 % (24-48) Monocytes (%) (Auto) 9 % (0-9) Eosinophils (%) (Auto) 2 % (0-3) Basophils (%) (Auto) 0 % (0-3) Neutrophils # (Auto) 4.4 x10^3/uL (1.8-7.7) Lymphocytes # (Auto) 2.6 x10^3/uL (1.0-4.8) Monocytes # (Auto) 0.7 x10^3/uL (0.0-1.1) Eosinophils # (Auto) 0.2 x10^3/uL (0.0-0.7) Basophils # (Auto) 0.0 x10^3/uL (0.0-0.2) Prothrombin Time 12.8 SEC (11.7-14.0) Prothromb Time International Ratio 1.0 (0.8-1.1) Activated Partial Thromboplast Time 35 SEC (24-38) Sodium Level 142 mmol/L (136-145) Potassium Level 3.5 mmol/L (3.5-5.1) Chloride Level 105 mmol/L (98-107) Carbon Dioxide Level 29 mmol/L (21-32) Anion Gap 8 (6-14) Blood Urea Nitrogen 12 mg/dL (7-20) Creatinine 1.0 mg/dL (0.6-1.0) Estimated GFR (Cockcroft-Gault) 61.4 BUN/Creatinine Ratio 12 (6-20) Glucose Level 100 mg/dL (70-99) Calcium Level 8.8 mg/dL (8.5-10.1) Total Bilirubin 0.3 mg/dL (0.2-1.0) Aspartate Amino Transf (AST/SGOT) 15 U/L (15-37) Alanine Aminotransferase (ALT/SGPT) 22 U/L (14-59) Alkaline Phosphatase 68 U/L (46-116) Creatine Kinase 128 U/L (26-192) Creatine Kinase MB (Mass) 1.0 ng/mL (0.0-3.6) Creatine Kinase MB Relative Index 0.8 % (0-4) Troponin I Quantitative < 0.017 ng/mL (0.000-0.055) HV-Jss-M-Type Natriuretic Peptide 474 pg/mL (0-124) Total Protein 7.6 g/dL (6.4-8.2) Albumin 3.3 g/dL (3.4-5.0) Albumin/Globulin Ratio 0.8 (1.0-1.7) Images Images TDI Lateral E' P. V 6.69cm/s Medial E' P. V 6.24cm/s E/Lateral E' 18.4 E/Medial E' 19.7 Tricuspid Valve TR P. Velocity 260cm/s RAP ESTIMATE 3mmHg TR Peak Gr. 27mmHg RVSP 30mmHg Pulmonary Vein S1 Velocity 56.2cm/s S2 Velocity 47.57cm/s D2 Velocity 47.6cm/s LEFT VENTRICLE The Left Ventricle is mildly dilated. There is normal left ventricular wall thickness. Left ventricle systolic function is severely impaired. The Ejection Fraction is 10-15%. There is severe global hypokinesis of the left ventricle. Tissue Doppler imaging reveals moderate left ventricular diastolic dysfunction. RIGHT VENTRICLE The right ventricle is normal size. The right ventricular systolic function is normal. ATRIA The left atrium is mildly dilated. The right atrium size is normal. The interatrial septum is intact with no evidence for an atrial septal defect or patent foramen ovale as noted on 2-D or Doppler imaging. AORTIC VALVE The aortic valve is normal in structure and function. Doppler and Color Flow revealed no significant aortic regurgitation. There is no significant aortic valvular stenosis. MITRAL VALVE The mitral valve is normal in structure and function. There is no evidence of mitral valve prolapse. There is no mitral valve stenosis. Doppler and Color-flow revealed trace mitral regurgitation. TRICUSPID VALVE The tricuspid valve is normal in structure and function. Doppler and Color Flow revealed trace tricuspid regurgitation. The PA pressure was estimated at 30 mmHg. There is no tricuspid valve stenosis. PULMONIC VALVE The pulmonary valve is normal in structure and function. Doppler and Color Flow revealed trace pulmonic valvular regurgitation. There is no pulmonic valvular stenosis. GREAT VESSELS The aortic root is normal in size. The ascending aorta is normal in size. The IVC is normal in size and collapses >50% with inspiration. PERICARDIAL EFFUSION There is a trace circumferential pericardial effusion. Critical Notification Physician Notified Date: 12/26/2016 Time: 09:25 Physician Name:Naomie MICHELLE Bolden Critical Value: Yes <Conclusion> Left ventricle systolic function is severely impaired. The Ejection Fraction is 10-15%. There is severe global hypokinesis of the left ventricle. DICTATED and SIGNED BY: YOVANY LIU MD DATE: 12/26/16 0958 CC: YOVANY LIU MD; FELIX GONZALEZ MD; MARYANNE COYLE MD; UNKNOWN PCP NAME ~ VTE Prophylaxis Ordered VTE Prophylaxis Devices: Yes VTE Pharmacological Prophylaxi: Yes Assessment/Plan Assessment/Plan IMPRESSION Chest discomfort, pain morbid obesity 12/2016 echo/// Left ventricle systolic function was severely impaired. Ejection Fraction was 10-15% severe global hypokinesis of the left ventricle diagnosis of preeclampsia and post- cardiomyopathy with ejection fraction 10%-15%, who was discharged from the hospital 2016 plan admit tele bed serial troponin i tele consult cardiology echo dvt prophylaxis 74 min pt exam, chart review, > 50% of time spent with exam, chart review, pt care coordination ANUM IRVIN MD Aug 02, 2019 18:35
[2019-08-02 19:30] VITALS: BP 116/64
[2019-08-02] MEDS ORDERED: ACETAMINOPHEN 325 MG TABLET. PO PRN (20:00)
[2019-08-02] MEDS ORDERED: ALBUTEROL SULFATE 2.5 MG/3 ML NEBU. INH PRN (20:00)
[2019-08-02] MEDS ORDERED: LORazepam 0.5 MG TABLET PO PRN (20:00)
[2019-08-02] MEDS ORDERED: guaiFENesin ORAL 200 MG/10 ML LIQUID. PO PRN (20:00)
[2019-08-02] MEDS ORDERED: ALBUTEROL SULFATE 2.5 MG/3 ML NEBU. NEB PRN (20:00)
[2019-08-02] MEDS ORDERED: MAG HYDROX/ALUMINUM HYD/SIMETH 30 ML ORAL.SUSP PO PRN (20:00)
[2019-08-02] MEDS ORDERED: DOCUSATE SODIUM 100 MG CAPSULE. PO PRN (20:00)
[2019-08-02] MEDS ORDERED: 0.9 % SODIUM CHLORIDE 10 ML DISP.SYRIN. IV PRN (20:00)
[2019-08-02] MEDS ORDERED: ATORVASTATIN CALCIUM 40 MG TABLET. PO SCH (21:00)
[2019-08-02] MEDS ORDERED: SACU1TAB4 PO (21:56)
[2019-08-02] MEDS ORDERED: FOLI0.8C PO (21:56)
[2019-08-02] MEDS ORDERED: CARV25TA2 PO (21:56)
[2019-08-02] MEDS: CARVEDILOL 12.5 MG TABLET. PO SCH (22:25)
[2019-08-02] MEDS: SACUBITRIL/VALSARTAN 49/51MG TABLET. PO SCH (22:26)
[2019-08-02 23:30] VITALS: BP 119/64
[2019-08-03 07:00] VITALS: BP 158/64
[2019-08-03] MEDS ORDERED: POTASSIUM CHLORIDE 10 MEQ TABLET.ER. PO SCH (08:00)
[2019-08-03] MEDS ORDERED: FUROSEMIDE 40 MG TABLET. PO SCH (09:00)
[2019-08-03] MEDS ORDERED: METOPROLOL SUCC 24HR ER 50 MG TAB.ER.24H. PO SCH (09:00)
[2019-08-03] MEDS ORDERED: LISINOPRIL 5 MG TABLET. PO SCH (09:00)
[2019-08-03] MEDS ORDERED: FOLIC ACID 1 MG TABLET. PO SCH (09:00)
[2019-08-03] MEDS ORDERED: CETIRIZINE HCL 10 MG TABLET. PO SCH (09:00)
--- NOTE | 2019-08-03 09:27 | PDOC2 ---
CARDIAC CONSULT DATE OF CONSULT Date of Consult DATE: 08/03/19 TIME: 09:17 REASON FOR CONSULT Reason for Consult: Chest pain, palpitations REFERRING PHYSICIAN Referring Physician: Cameron Holly APRN SOURCE Source: Chart review, Patient HISTORY OF PRESENT ILLNESS HISTORY OF PRESENT ILLNESS This is a 39 yo female who presented secondary the palpitations. Patient reports she has been experiencing intermittent palpitations for the last months. Seems to be worse recently. No chest pain, SOA, dizziness, diaphoresis, or nausea/vomiting. Has a history of NICM s/p AICD. Follows with Dr. Grant of cardiology. Reports compliance with medications. PAST MEDICAL HISTORY Past Medical History Cardiovascular: HTN (preeclampsia), post- cardiomyopathy Pulmonary: Asthma CENTRAL NERVOUS SYSTEM: Other (No pertinent history) GI: No pertinent hx Heme/Onc: No pertinent hx Hepatobiliary: No pertinent hx Psych: No pertinent hx Musculoskeletal: Other (None) Rheumatologic: No pertinent hx Infectious disease: No pertinent hx ENT: Allergic Rhinitis Renal/: No pertinent hx Endocrine: No pertinent hx Dermatology: No pertinent hx PAST SURGICAL HISTORY Past Surgical History , Hernia Repair, Tubal Ligation FAMILY HISTORY Family History: Coronary Artery Disease SOCIAL HISTORY Social History Smoke: No ALCOHOL: occasional Drugs: None Lives: with Family CURRENT MEDICATIONS CURRENT MEDICATIONS Current Medications Medications (Trade) Dose Ordered Sig/Ed Route PRN Reason Start Time Stop Time Status Last Admin Dose Admin Metronidazole (Flagyl) 500 mg Q12HR PO 08/02/19 18:00 08/02/19 17:40 Ondansetron HCl (Zofran) 4 mg PRN Q8HRS PRN IV NAUSEA/VOMITING 08/02/19 17:30 08/02/19 19:58 DC 08/02/19 17:40 Morphine Sulfate (Morphine Sulfate) 2 mg PRN Q2HR PRN IV PAIN 08/02/19 17:30 08/03/19 17:29 08/02/19 22:26 Nitroglycerin (Nitrostat) 0.4 mg PRN Q5MIN PRN SL CHEST PAIN 08/02/19 17:30 08/03/19 17:29 08/02/19 17:40 Acetaminophen (Tylenol) 650 mg PRN Q4HRS PRN PO TEMP OVER 100.4F OR MILD PAIN 08/02/19 20:00 08/03/19 01:17 Carvedilol (Coreg) 25 mg BIDWMEALS PO 08/02/19 22:15 08/02/19 22:25 Sacubitril/ Valsartan (Entresto 49 Mg-51 Mg) 2 tab BID PO 08/02/19 22:00 08/02/19 22:26 ALLERGIES ALLERGIES: Coded Allergies: aspirin (Verified Adverse Reaction, Unknown, 08/02/19) CONTRAINDICATION ibuprofen (Verified Adverse Reaction, Unknown, 08/02/19) CONTRAINDICATION ROS Review of System 14 point ROS conducted with pertinent positives noted above in hPI PHYSICAL EXAM PHYSICAL EXAM General: Alert, Oriented X3, Cooperative, No acute distress HEENT: Atraumatic, Mucous membr. moist/pink Lungs: Clear to auscultation, Normal air movement Heart: Regular rate (tele: SR LBBB), Normal S1, Normal S2, Abdomen: Soft, No tenderness Extremities: No cyanosis, No edema Skin: No breakdown, No significant lesion Neuro: Normal speech, Sensation intact Psych/Mental Status: Mental status NL, Mood NL MUSCULOSKELETAL: Full range of motion without pain VITALS/I&O VITALS/I&O: Vital Signs Date Time Temp Pulse Resp B/P (MAP) Pulse Ox O2 Delivery O2 Flow Rate FiO2 08/03/19 07:00 98.3 77 18 158/64 (95) 100 Room Air 98.3 I & O 08/02/19 08/02/19 08/03/19 15:00 23:00 07:00 Intake Total 250 ml 100 ml Balance 250 ml 100 ml LABS Lab: Laboratory Tests Test 08/02/19 14:52 08/02/19 15:30 08/03/19 00:40 08/03/19 03:58 Urine Collection Type Unknown Urine Color Yellow Urine Clarity Clear Urine pH 5.5 Urine Specific [place] >=1.030 Urine Protein Negative mg/dL (NEG-TRACE) Urine Glucose (UA) Negative mg/dL (NEG) Urine Ketones (Stick) Negative mg/dL (NEG) Urine Blood Moderate (NEG) Urine Nitrite Negative (NEG) Urine Bilirubin Negative (NEG) Urine Urobilinogen Dipstick 1.0 mg/dL (0.2 mg/dL) Urine Leukocyte Esterase Negative (NEG) Urine RBC Occ /HPF (0-2) Urine WBC Occ /HPF (0-4) Urine Squamous Epithelial Cells Mod /LPF Urine Bacteria Few /HPF (0-FEW) Urine Mucus Marked /LPF White Blood Count 7.9 x10^3/uL (4.0-11.0) Red Blood Count 4.24 x10^6/uL (3.50-5.40) Hemoglobin 12.1 g/dL (12.0-15.5) Hematocrit 37.0 % (36.0-47.0) Mean Corpuscular Volume 87 fL (79-100) Mean Corpuscular Hemoglobin 28 pg (25-35) Mean Corpuscular Hemoglobin Concent 33 g/dL (31-37) Red Cell Distribution Width 13.7 % (11.5-14.5) Platelet Count 228 x10^3/uL (140-400) Neutrophils (%) (Auto) 56 % (31-73) Lymphocytes (%) (Auto) 33 % (24-48) Monocytes (%) (Auto) 9 % (0-9) Eosinophils (%) (Auto) 2 % (0-3) Basophils (%) (Auto) 0 % (0-3) Neutrophils # (Auto) 4.4 x10^3/uL (1.8-7.7) Lymphocytes # (Auto) 2.6 x10^3/uL (1.0-4.8) Monocytes # (Auto) 0.7 x10^3/uL (0.0-1.1) Eosinophils # (Auto) 0.2 x10^3/uL (0.0-0.7) Basophils # (Auto) 0.0 x10^3/uL (0.0-0.2) Prothrombin Time 12.8 SEC (11.7-14.0) Prothrombin Time INR 1.0 (0.8-1.1) Activated Partial Thromboplast Time 35 SEC (24-38) Sodium Level 142 mmol/L (136-145) Potassium Level 3.5 mmol/L (3.5-5.1) Chloride Level 105 mmol/L (98-107) Carbon Dioxide Level 29 mmol/L (21-32) Anion Gap 8 (6-14) Blood Urea Nitrogen 12 mg/dL (7-20) Creatinine 1.0 mg/dL (0.6-1.0) Estimated GFR (Cockcroft-Gault) 61.4 BUN/Creatinine Ratio 12 (6-20) Glucose Level 100 mg/dL (70-99) H Calcium Level 8.8 mg/dL (8.5-10.1) Total Bilirubin 0.3 mg/dL (0.2-1.0) Aspartate Amino Transferase (AST) 15 U/L (15-37) Alanine Aminotransferase (ALT) 22 U/L (14-59) Alkaline Phosphatase 68 U/L (46-116) Creatine Kinase 128 U/L (26-192) Creatine Kinase MB (Mass) 1.0 ng/mL (0.0-3.6) Creatine Kinase MB Relative Index 0.8 % (0-4) Troponin I Quantitative < 0.017 ng/mL (0.000-0.055) < 0.017 ng/mL (0.000-0.055) < 0.017 ng/mL (0.000-0.055) UE-Kbm-G-Type Natriuretic Peptide 474 pg/mL (0-124) H Total Protein 7.6 g/dL (6.4-8.2) Albumin 3.3 g/dL (3.4-5.0) L Albumin/Globulin Ratio 0.8 (1.0-1.7) L Laboratory Tests 08/02/19 15:30 Laboratory Tests 08/02/19 15:30 ECHOCARDIOGRAM ECHOCARDIOGRAM <Conclusion> Left ventricle systolic function is severely impaired. The Ejection Fraction is 10-15%. There is severe global hypokinesis of the left ventricle. DATE: 12/26/16 0958 Summary Left Ventricle: Normal size and shape. Concentric remodeling. Moderately decreased ejection fraction with LVEF=40% and diffuse hypokinesis. Right Ventricle: Normal size, wall thickness and ejection fraction. Normal biatrial size. Valves are normal in structure and function. Estimated Peak Systolic PA Pressure 26 mmHg Compared with study dated 06/24/18, there has been a mild improvement in global LV function. 06/30/19 - 2-D + DOPPLER ECHOCARDIOGRAM HEART CATH HEART CATH FINDINGS 1. Hemodynamics: Left ventricular end-diastolic pressure of 27 mmHg. No pullback gradient across the aortic valve. 2. Left ventriculography: Severe global left ventricular systolic dysfunction with ejection fraction estimated at 15-20%. No significant mitral regurgitation seen. 3. Coronary angiography: a. The left main coronary artery arose from the left sinus of Valsalva, gave rise to the left anterior descending and left circumflex arteries and did not show any significant stenosis. b. The left anterior descending artery did not show any significant stenosis. c. The left circumflex artery did not show any significant stenosis. d. The right coronary artery was a large and dominant vessel arising from the right sinus of Valsalva that did not show any significant stenosis. Conclusion 1. No significant coronary artery disease 2. Severe global left ventricular systolic dysfunction with ejection fraction estimated at 15-20% DATE: 12/26/16 1305 ASSESSMENT/PLAN ASSESSMENT/PLAN 1. Chest pain, atypical. AMI ruled out. Cath 2016 with no significant coronary artery disease 2. Palpitations; no tachyarrhythmias thus far on tele although no report of palpitations overnight 3. Chronic systolic CHF; clinically compensated 4. Cardiomyopathy, non-ischemic: LVEF 10-15% (2017). Most recent echo 06/2019 with LVEF 40% as noted above. Follows with Dr. Grant of [facility] [place]. S/p Bi-V AICD ([place]) 5. Morbid obesity 6. HTN ;controlled Recommendations TSH, Mg level Device interrogation Echo completed this morning Resume HF optimization wtih BB, Entresto, spironolactone, and lasix If patient having elevated HR, will convert coreg to Toprol for rate control Discussed limiting caffeine intake. PARUL ROSS APRN Aug 03, 2019 09:27
[2019-08-03] MEDS ORDERED: POTA10TA12 PO (10:05)
[2019-08-03] MEDS ORDERED: ATOR40TA59 PO (10:05)
[2019-08-03] MEDS ORDERED: LISI-338 PO (10:05)
[2019-08-03] MEDS ORDERED: METR500T PO (10:05)
[2019-08-03] MEDS: metroNIDAZOLE 500 MG TABLET PO SCH (10:31)
[2019-08-03] MEDS: SACUBITRIL/VALSARTAN 49/51MG TABLET. PO SCH (10:31)
[2019-08-03] MEDS: CARVEDILOL 12.5 MG TABLET. PO SCH ×2 (10:33→17:24)
[2019-08-03 11:12] VITALS: BP 125/77
--- NOTE | 2019-08-03 11:23 | CARD ---
MR#: [id number] Date of Study: 08/03/2019 Ordering Physician: ANUM IRVIN, Referring Physician: ANUM IRVIN, Tech: Ramila Cortez RDCS APPROVED REPORT EXAM: Two-dimensional and M-mode echocardiogram with Doppler and color Doppler. Other Information Quality : Good INDICATION Congestive Heart Failure Surgery/Intervention ICD/Pacemaker: Date: 08/2018 2D DIMENSIONS RVDd3.1 (2.9-3.5cm)Left Atrium(2D)4.1 (1.6-4.0cm) IVSd1.1 (0.7-1.1cm)Aortic Root(2D)2.7 (2.0-3.7cm) LVDd4.9 (3.9-5.9cm)LVOT Diameter2.0 (1.8-2.4cm) PWd1.1 (0.7-1.1cm)LVDs4.4 (2.5-4.0cm) FS (%) 11.6 %SV28.7 ml LVEF(%)25.0 (>50%) M-Mode DIMENSIONS IVSd0.95 (0.7-1.1cm)LVDd5.02 (4.0-5.6cm) PWd1.28 (0.7-1.1cm)IVSs5.16 cm Aortic Valve AoV Peak Thai.141.6cm/sAoV VTI28.7cm AO Peak GR.8.0mmHgLVOT VTI 20.82cm AO Mean GR.5mmHgAVA (VTI)2.40cm2 Mitral Valve MV E Acotdwzo73.0cm/sMV DECEL [id number] MV A Uahbgyxd04.7cm/sE/A Ratio1.3 TDI Lateral E' P. V7.85cm/sMedial E' P. V6.11cm/s E/Lateral E'10.8E/Medial E'13.9 Tricuspid Valve TR P. Bhkspfgd104cj/sRAP [id number] TR Peak Gr.92irRtSDZH15vtEe Pulmonary Vein S1 Wcdogvrb56.5cm/sS2 Stsrmlzj15.12cm/s D2 Iazotqpy75.1cm/s LEFT VENTRICLE The Left Ventricle is moderately dilated. There is mild concentric left ventricular hypertrophy. Left ventricle systolic function is moderately impaired. The Ejection Fraction is 25-30%. There is modera te global hypokinesis of the left ventricle. The left ventricular diastolic function and filling is n ormal for age. RIGHT VENTRICLE The right ventricle is normal size. The right ventricular systolic function is normal. There is a pac emaker lead in the right ventricle. ATRIA The left atrium is mildly dilated. The right atrium size is normal. A pacemaker is seen in the right atrium consistent with history. The interatrial septum is intact with no evidence for an atrial septa l defect or patent foramen ovale as noted on 2-D or Doppler imaging. AORTIC VALVE The aortic valve is normal in structure and function. Doppler and Color Flow revealed no significant aortic regurgitation. There is no significant aortic valvular stenosis. MITRAL VALVE The mitral valve is normal in structure and function. There is no evidence of mitral valve prolapse. There is no mitral valve stenosis. Doppler and Color-flow revealed trace mitral regurgitation. TRICUSPID VALVE The tricuspid valve is normal in structure and function. Doppler and Color Flow revealed trace tricus pid regurgitation. The PA pressure was estimated at 29 mmHg. There is no tricuspid valve stenosis. PULMONIC VALVE The pulmonic valve is not well visualized. Doppler and Color Flow revealed no pulmonic valvular regur gitation. There is no pulmonic valvular stenosis. GREAT VESSELS The aortic root is normal in size. The ascending aorta is normal in size. The IVC is normal in size a nd collapses >50% with inspiration. PERICARDIAL EFFUSION There is no evidence of significant pericardial effusion. Critical Notification Critical Value: No <Conclusion> Left ventricle systolic function is moderately impaired. The Ejection Fraction is 25-30%. There is moderate global hypokinesis of the left ventricle. There is a pacemaker lead in the right ventricle. Signed by : Flash Asher, Electronically Approved : 08/03/2019 11:22:42
--- NOTE | 2019-08-03 11:47 | PDOC3 ---
Discharge Summary Visit Information Date of Admission: Aug 02, 2019 Date of Discharge: Aug 03, 2019 Admitting Diagnosis Comment: CM, EF 40% (from 10-15%) Indwelling ST kayode AICD Chest discomfort, pain morbid obesity Final Diagnosis Problems Medical Problems: (1) Bacterial vaginosis Status: Acute (2) Chest pain Status: Acute (3) Palpitations Status: Acute Brief Hospital Course Allergies Allergies Coded Allergies Type Severity Reaction Last Updated Verified aspirin Adverse Reaction Unknown 08/02/19 Yes ibuprofen Adverse Reaction Unknown 08/02/19 Yes Vital Signs Vital Signs Date Time Temp Pulse Resp B/P (MAP) Pulse Ox O2 Delivery O2 Flow Rate FiO2 08/03/19 11:12 98.4 116 18 125/77 (93) 98 Room Air 98.4 Lab Results Laboratory Tests Test 08/02/19 14:52 08/02/19 15:30 08/03/19 00:40 08/03/19 03:45 Urine Collection Type Unknown Urine Color Yellow Urine Clarity Clear Urine pH 5.5 Urine Specific [place] >=1.030 Urine Protein Negative mg/dL (NEG-TRACE) Urine Glucose (UA) Negative mg/dL (NEG) Urine Ketones (Stick) Negative mg/dL (NEG) Urine Blood Moderate (NEG) Urine Nitrite Negative (NEG) Urine Bilirubin Negative (NEG) Urine Urobilinogen Dipstick 1.0 mg/dL (0.2 mg/dL) Urine Leukocyte Esterase Negative (NEG) Urine RBC Occ /HPF (0-2) Urine WBC Occ /HPF (0-4) Urine Squamous Epithelial Cells Mod /LPF Urine Bacteria Few /HPF (0-FEW) Urine Mucus Marked /LPF White Blood Count 7.9 x10^3/uL (4.0-11.0) Red Blood Count 4.24 x10^6/uL (3.50-5.40) Hemoglobin 12.1 g/dL (12.0-15.5) Hematocrit 37.0 % (36.0-47.0) Mean Corpuscular Volume 87 fL (79-100) Mean Corpuscular Hemoglobin 28 pg (25-35) Mean Corpuscular Hemoglobin Concent 33 g/dL (31-37) Red Cell Distribution Width 13.7 % (11.5-14.5) Platelet Count 228 x10^3/uL (140-400) Neutrophils (%) (Auto) 56 % (31-73) Lymphocytes (%) (Auto) 33 % (24-48) Monocytes (%) (Auto) 9 % (0-9) Eosinophils (%) (Auto) 2 % (0-3) Basophils (%) (Auto) 0 % (0-3) Neutrophils # (Auto) 4.4 x10^3/uL (1.8-7.7) Lymphocytes # (Auto) 2.6 x10^3/uL (1.0-4.8) Monocytes # (Auto) 0.7 x10^3/uL (0.0-1.1) Eosinophils # (Auto) 0.2 x10^3/uL (0.0-0.7) Basophils # (Auto) 0.0 x10^3/uL (0.0-0.2) Prothrombin Time 12.8 SEC (11.7-14.0) Prothromb Time International Ratio 1.0 (0.8-1.1) Activated Partial Thromboplast Time 35 SEC (24-38) Sodium Level 142 mmol/L (136-145) Potassium Level 3.5 mmol/L (3.5-5.1) Chloride Level 105 mmol/L (98-107) Carbon Dioxide Level 29 mmol/L (21-32) Anion Gap 8 (6-14) Blood Urea Nitrogen 12 mg/dL (7-20) Creatinine 1.0 mg/dL (0.6-1.0) Estimated GFR (Cockcroft-Gault) 61.4 BUN/Creatinine Ratio 12 (6-20) Glucose Level 100 mg/dL (70-99) Calcium Level 8.8 mg/dL (8.5-10.1) Total Bilirubin 0.3 mg/dL (0.2-1.0) Aspartate Amino Transf (AST/SGOT) 15 U/L (15-37) Alanine Aminotransferase (ALT/SGPT) 22 U/L (14-59) Alkaline Phosphatase 68 U/L (46-116) Creatine Kinase 128 U/L (26-192) Creatine Kinase MB (Mass) 1.0 ng/mL (0.0-3.6) Creatine Kinase MB Relative Index 0.8 % (0-4) Troponin I Quantitative < 0.017 ng/mL (0.000-0.055) < 0.017 ng/mL (0.000-0.055) DK-Lih-U-Type Natriuretic Peptide 474 pg/mL (0-124) Total Protein 7.6 g/dL (6.4-8.2) Albumin 3.3 g/dL (3.4-5.0) Albumin/Globulin Ratio 0.8 (1.0-1.7) Magnesium Level 2.0 mg/dL (1.8-2.4) Thyroid Stimulating Hormone (TSH) 2.400 uIU/mL (0.358-3.74) Test 08/03/19 03:58 Troponin I Quantitative < 0.017 ng/mL (0.000-0.055) Laboratory Tests Test 08/02/19 14:52 08/02/19 15:30 08/03/19 00:40 08/03/19 03:45 Urine Collection Type Unknown Urine Color Yellow Urine Clarity Clear Urine pH 5.5 Urine Specific [place] >=1.030 Urine Protein Negative mg/dL (NEG-TRACE) Urine Glucose (UA) Negative mg/dL (NEG) Urine Ketones (Stick) Negative mg/dL (NEG) Urine Blood Moderate (NEG) Urine Nitrite Negative (NEG) Urine Bilirubin Negative (NEG) Urine Urobilinogen Dipstick 1.0 mg/dL (0.2 mg/dL) Urine Leukocyte Esterase Negative (NEG) Urine RBC Occ /HPF (0-2) Urine WBC Occ /HPF (0-4) Urine Squamous Epithelial Cells Mod /LPF Urine Bacteria Few /HPF (0-FEW) Urine Mucus Marked /LPF White Blood Count 7.9 x10^3/uL (4.0-11.0) Red Blood Count 4.24 x10^6/uL (3.50-5.40) Hemoglobin 12.1 g/dL (12.0-15.5) Hematocrit 37.0 % (36.0-47.0) Mean Corpuscular Volume 87 fL (79-100) Mean Corpuscular Hemoglobin 28 pg (25-35) Mean Corpuscular Hemoglobin Concent 33 g/dL (31-37) Red Cell Distribution Width 13.7 % (11.5-14.5) Platelet Count 228 x10^3/uL (140-400) Neutrophils (%) (Auto) 56 % (31-73) Lymphocytes (%) (Auto) 33 % (24-48) Monocytes (%) (Auto) 9 % (0-9) Eosinophils (%) (Auto) 2 % (0-3) Basophils (%) (Auto) 0 % (0-3) Neutrophils # (Auto) 4.4 x10^3/uL (1.8-7.7) Lymphocytes # (Auto) 2.6 x10^3/uL (1.0-4.8) Monocytes # (Auto) 0.7 x10^3/uL (0.0-1.1) Eosinophils # (Auto) 0.2 x10^3/uL (0.0-0.7) Basophils # (Auto) 0.0 x10^3/uL (0.0-0.2) Prothrombin Time 12.8 SEC (11.7-14.0) Prothromb Time International Ratio 1.0 (0.8-1.1) Activated Partial Thromboplast Time 35 SEC (24-38) Sodium Level 142 mmol/L (136-145) Potassium Level 3.5 mmol/L (3.5-5.1) Chloride Level 105 mmol/L (98-107) Carbon Dioxide Level 29 mmol/L (21-32) Anion Gap 8 (6-14) Blood Urea Nitrogen 12 mg/dL (7-20) Creatinine 1.0 mg/dL (0.6-1.0) Estimated GFR (Cockcroft-Gault) 61.4 BUN/Creatinine Ratio 12 (6-20) Glucose Level 100 mg/dL (70-99) Calcium Level 8.8 mg/dL (8.5-10.1) Total Bilirubin 0.3 mg/dL (0.2-1.0) Aspartate Amino Transf (AST/SGOT) 15 U/L (15-37) Alanine Aminotransferase (ALT/SGPT) 22 U/L (14-59) Alkaline Phosphatase 68 U/L (46-116) Creatine Kinase 128 U/L (26-192) Creatine Kinase MB (Mass) 1.0 ng/mL (0.0-3.6) Creatine Kinase MB Relative Index 0.8 % (0-4) Troponin I Quantitative < 0.017 ng/mL (0.000-0.055) < 0.017 ng/mL (0.000-0.055) WW-Reg-M-Type Natriuretic Peptide 474 pg/mL (0-124) Total Protein 7.6 g/dL (6.4-8.2) Albumin 3.3 g/dL (3.4-5.0) Albumin/Globulin Ratio 0.8 (1.0-1.7) Magnesium Level 2.0 mg/dL (1.8-2.4) Thyroid Stimulating Hormone (TSH) 2.400 uIU/mL (0.358-3.74) Test 08/03/19 03:58 Troponin I Quantitative < 0.017 ng/mL (0.000-0.055) Brief Hospital Course Ms. Ruiz is a 39 old AA femal who has severe CM with EF 10-15% has indwelling ST kayode AICD, follows with [facility] cards, Admitted here for CP and now EF 40% (latest echo) on entresto and other meds ie lasix, KCl and maintains compliance, We had to start some kcl10 bec of low K, CARds thinking changing coreg to toprol sec to HR, will see how she trends HR 70s now asymptomatic, Johnnyu ld be able to dc later - no rx needed unless cards changes the BB of choice No PT needs FF up cards on dc c/o [facility] Discharge Information Condition at Discharge: Improved, Stable Follow Up: Weeks ([facility] cards as scheduled) Disposition/Orders: D/C to Home Scheduled Atorvastatin Calcium (Atorvastatin Calcium) 40 Mg Tablet, 40 MG PO QHS for lipids, #60 Prescribed by: JAMAL RODRIGUEZ on 08/03/19 1005 Carvedilol (Carvedilol) 25 Mg Tablet, 25 MG PO BIDWMEALS for CARDIAC, (Reported) Entered as Reported by: CHON HALEY on 08/02/192155 Last Taken: Unknown Dose on 08/02/19 0900 Last Action: Converted on 07/17 by CHON HALEY Folic Acid (Folic Acid) 0.8 Mg Capsule, 1 CAP PO DAILY for supplement for 30 Days, #30 Ref 0 (Reported) Entered as Reported by: CHON HALEY on 08/02/192155 Last Taken: Unknown Dose on 08/02/19 Last Action: Converted on 08/02/192156 by CHON HALEY Furosemide (Furosemide) 40 Mg Tablet, 40 MG PO DAILY, #40 Prescribed by: HUONG WILLIAMSON MD on 12/27/16 1254 Last Taken: Unknown Dose on 08/01/19 Last Action: Last Taken Edited on 08/02/192155 by CHON HALEY Lisinopril (Lisinopril) 5 Mg Tablet, 2.5 MG PO DAILY for chf, htn, #60 Prescribed by: JAMAL RODRIGUEZ on 08/03/19 1005 Metronidazole (Flagyl) 500 Mg Tablet, 500 MG PO Q12HR for BActerial vaginosis for 7 Days, #14 Prescribed by: JAMAL RODRIGUEZ on 08/03/19 1005 Potassium Chloride (Klor-Con 10) 10 Meq Tablet.er, 10 MEQ PO DAILYWBKFT for low k for 7 Days, #7 Prescribed by: JAMAL RODRIGUEZ on 08/03/19 1005 Sacubitril/Valsartan (Entresto 97 mg-103 mg Tablet) 1 Each Tablet, 1 EACH PO BID for heart, (Reported) Entered as Reported by: CHON HALEY on 08/02/192155 Last Taken: Unknown Dose on 08/02/19 0900 Last Action: Converted on 08/02/192156 by CHON HALEY Scheduled PRN Albuterol Sulfate (Proair Hfa Inhaler) 8.5 Gm Hfa.aer.ad, 1 PUFF INH PRN Q6HRS PRN for SHORTNESS OF BREATH, Ref 0 (Reported) Entered as Reported by: JEWEL CALLAHAN on 12/26/16 0424 Last Action: Continued on 08/02/192001 by MD MICHAEL VARGAS CHERRIE Y MD Aug 03, 2019 11:47
[2019-08-03 15:19] VITALS: BP 116/77
--- NOTE | 2019-08-03 15:31 | NUR ---
SS following for discharge planning. SS reviewed pt chart. Pt is from home and is currently on room air. SS will continue to follow for discharge planning.
[2019-08-03 17:24] VITALS: BP 116/77
[2019-08-03 18:09] LABS: GC PROBE Negative (Negative)
--- NOTE | 2019-08-03 20:10 | NUR ---
This nurse paged cardiology rehabilitation worker. Indira returned paged and after this nurse read him the reports he agreed patient ok to discharge.
[2019-08-03] MEDS ORDERED: ENOXAPARIN 40 MG/0.4 ML SYRINGE. SQ SCH (21:00)
--- NOTE | 2019-08-03 21:05 | NUR ---
Discharge Note: [facility] Discharge instructions and discharge home medications reviewed with Patient and a copy given. All questions have been answered and understanding verbalized. The following instructions and handouts were given: medications, activity, diet and symptoms worsening. Discontinued lines and drains: Discontinued 20g antecubital peripheral IV with no complications, direct pressure and bandage applied and tip was intact. Patient discharged to home with self via ambulation and escorted to emergency entrance with RAMP ATTENDANT.
== END 2019-08-03 20:40 | disposition home or self-care (01) | DRG 758 ==
LOC: ER 14:33 → 6 SOUTH 17:27
PROVIDERS: ADMIT Family Medicine; ATTEND Family Medicine
DX: N76.0 Acute vaginitis (principal); I42.8 Other cardiomyopathies; I50.22 Chronic systolic (congestive) heart failure; Z68.41 Body mass index [BMI] 40.0-44.9, adult; R07.89 Other chest pain; E66.01 Morbid (severe) obesity due to excess calories; I11.0 Hypertensive heart disease with heart failure; J45.909 Unspecified asthma, uncomplicated; Z82.49 Family history of ischemic heart disease and other diseases of the circulatory system; Z95.810 Presence of automatic (implantable) cardiac defibrillator
CPT/HCPCS: 36415; 71046; 80053; 81001; 82553; 83735; 83880; 84443; 84484; 85025; 85610; 85730; 87491; 87591; 93005; 93306; 96374; J2270; J2405; Q0111; 99285-25; G0378